=== PATIENT | male | born 1935 | race Caucasian/White ===

== ENCOUNTER → 2016-08-27 | Day surgery (SDC) | payer OTHER, BC ==
[~2016-08-27] VITALS: Ht 176.5 cm; Wt 83.5 kg
[~2016-08-27] MED LIST: ALL300 PO; ASPEC81 PO; ATROPINE SULFATE 0.1 MG/ML 5ML SYR IV PRN; BELLADONNA/OPIUM SUPP 60 MG SUPP PR ONE; BRIM0.2S OPL; CEFAZOLIN 2000 MG/60 ML D5W IV SCH; CEPH-570 PO; CHOL100010 PO; EpHEDrine SULFATE 50MG/5ML SYR ONE; EpHEDrine SULFATE INJ 50 MG/ML AMP IV PRN; FENTANYL CITRATE INJ 50 MCG/1 ML 2 ML VIAL IV PRN; FENTANYL CITRATE INJ 50 MCG/1 ML 2 ML VIAL ONE; FISHOIL PO; GABA1TAB PO; GLC500 PO; HYDROmorphone INJ 1 MG/ML SYR IV PRN; LABETALOL HCL IV 5 MG/ML 20ML IV ONE; LIDOCAINE HCL 2% 2 ML VIAL (20MG/ML) ONE; LOTE1GEL OPL; LPT10 PO; MIDAZOLAM HCL 1 MG/ML 2ML VIAL ONE; MULT-506 PO; ONDANSETRON INJ 2 MG/ML 2 ML VIAL IV PRN; PRED-301 PO; PROPOFOL IV EMULSION 10 MG/ML 20 ML VIAL IV ONE; ROCURONIUM BROMIDE 10 MG/ML 5 ML VIAL ONE; SENN1TAB77 PO; SUCCINYLCHOLINE CHLORIDE 20 MG/ML 10 ML VIAL IV ONE; VALA500T60 PO; VITA1TAB4 PO
[2016-08-27 15:10] VITALS: BP 155/77; PULSE 60; TEMP 36.9; O2SAT 98; Ht 176.5 cm; Wt 83.5 kg
--- NOTE | 2016-08-27 19:22 | [facility] Operative Report ---
Operative Report Operative Date Aug 27, 2016. Pre-Operative Diagnosis Left ureteral stone Post-Operative Diagnosis impacted left ureteral stone Procedure(s) Performed cysto left ureteroscopy laser lithotripsy basket stone extraction stent placement Surgeon Dr. Zuleta Customer Relationship Specialist Surgeon(s) none Estimated Blood Loss 2ml Findings large impacted left mid ureteral stone, densely radio-opaque Fluids 700mL Specimens A. Left ureteral stone For Culture: urine 1. Urine - Routine - Culture and Sensitivity Drains 6 fr 26 centimeter double j stent Anesthesia GET Complication(s) None Disposition Recovery Room / PACU Indications large obstructing left mid ureteral stone with renal insufficiency Description of Procedure Patient was given generl ET anesthesia and placed in lithotomy position. His genitals were prepped and draped in sterile fashion. Time out held with team. I placed a 21 fr rigid cystoscope to bladder. 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 Scope fits just a bit tight. The prostate is enlarged with a large middle lobe but short. The UOs are dependent due to middle lobe and slit shape. I placed a road wire up left ureter and met a lot of resistance at the radio-opaque mid ureteral stone. With much manipulation I got road runner wire passed the stone to kidney. Immediately there was brisk drainage of white colored urine consistent with long standing obstruction. I switched the wire via a 5 fr to a stiff wire. I used a dual lumen to calibrate the UO and place a second wire. I passed a flexible ureteroscope to the stone. i used a 200 micron holmium laser to fragment thee large dense black stone in the mid ureter. It was heavily impacted at the lateral margin. I broke the stones carmen dozens of pieces. I used a 2.4 fr zero tip basket to remove all the pieces and drop them in the bladder. I then placed a 26 centimeter 6 Fr double J stent easily. There is brisk efflux after placement. I rinsed the stone fragmetns out of the bladder with the cystoscope. I left bladder empty and concluded case. I placed a belladonna and opium suppository for post-op pain. He transferred to recovery under my escort, in stable condition. Plan: Home today Pyridium for dysuria x 3 days flomax daily oral pain meds as needed stent out in 2 weeks renal ultrasound in 6 weeks ASA 3 clean contaminated case 57 seconds fluoro ancef antibiotic confectionery cooker I attest to the content of the Intraoperative Record and any orders documented therein. Any exceptions are noted below.
--- NOTE | 2016-08-27 19:25 | Discharge Instructions ---
Discharge Instructions Date of Service Aug 27, 2016. Admission Reason for Admission: Kidney Stones Discharge Discharge Diagnosis / Problem: impacted large left mid ureteral stone Discharge Goals Goal(s): Decrease discomfort, Improve function, Improve disease control Activity Recommendations Activity Limitations: resume your previous activity Lifting Limitations: none Exercise/Sports Limitations: none May Resume Sexual Activity: when tolerated Shower/Bathe: no limitations Driving or Machine Use: resume 1 day after discharge . Instructions / Follow-Up Instructions / Follow-Up expect blood in urine we will remove the stent in 2 weeks in the office we will get a renal ultrasound in 6 weeks Discharge Diet Recommended Diet: Diabetes Type 2 Diet Fluid Restriction: None Procedures Procedures Performed: Cystoscopy, Left ureteroscopy, Laser Lithotripsy Holmium, Left ureteral basket stone extraction stent placement Pending Studies Studies pending at discharge: yes List of pending studies: stone analysis and urine culture Medical Emergencies . Who to Call and When: Medical Emergencies: If at any time you feel your situation is an emergency, please call 911 immediately. . Non-Emergent Contact Non-Emergency issues call your: Urologist ([phone]) Call Non-Emergent contact if: temperature is above 100.5, your pain is not controlled . . "Provider Documentation" section prepared by Mira Zuleta. VTE Core Measure Inpt VTE Proph given/why not?: SCD's [place] Drug Monitoring Program Search Results: patient reviewed within database, no issues identified
--- NOTE | 2016-08-27 19:40 | DIAGNOSTIC IMAGING REPORT ---
INTRAOPERATIVE SUPINE ABDOMEN 4 VIEWS CLINICAL HISTORY: Laser lithotripsy and stent placement COMPARISON STUDY: No previous studies for comparison. FINDINGS: 4 fluoroscopic spot images are provided for interpretation. 50 seconds seconds of fluoroscopic time was utilized. The left ureter was catheterized in a retrograde fashion. A left-sided nephroureteral stent was placed. The final image, the distal portion of the stent is visualized with a pigtail catheter bladder level. IMPRESSION: Intraoperative fluoroscopic spot films during laser lithotripsy and stent placement Electronically signed by: Tony Byrd M.D. 08/27/2016 7:38 PM Dictated Date/Time: 08/27/2016 7:37 PM
[2016-08-27 20:00] VITALS: BP 177/79; PULSE 51; TEMP 36; O2SAT 100
--- NOTE | 2016-08-27 20:00 | Anesthesiology Progress Note ---
Anesthesia Post Op Note Date & Time Aug 27, 2016 at 20:00 Vital Signs Pain Intensity: 0 Vital Signs Past 12 Hours Date Time Temp Pulse Resp B/P Pulse Ox O2 Delivery O2 Flow Rate FiO2 08/27/16 19:55 36.4 60 16 178/75 99 Room Air 08/27/16 19:45 58 16 173/85 99 Room Air 08/27/16 19:35 64 16 168/89 99 Room Air 08/27/16 19:25 68 16 169/89 99 Room Air 08/27/16 19:17 36.5 67 16 178/96 100 Mask 10 08/27/16 15:10 36.9 60 18 155/77 98 Room Air Notes Mental Status: alert / awake / arousable, participated in evaluation Pt Amnestic to Procedure: Yes Nausea / Vomiting: adequately controlled Pain: adequately controlled Airway Patency, RR, SpO2: stable & adequate BP & HR: stable & adequate Hydration State: stable & adequate Anesthetic Complications: no major complications apparent
[2016-08-27 20:30] VITALS: BP 166/86; PULSE 67; TEMP 36; O2SAT 95
== END | disposition home or self-care (01) ==
LOC: C.ACU 14:33
PROVIDERS: ATTEND Urology
DX: N20.1 Calculus of ureter (principal); E11.9 Type 2 diabetes mellitus without complications

== ENCOUNTER → 2017-01-10 | Outpatient (CLI) | payer OTHER, BC ==
[~2017-01-10] MED LIST changes: -ATROPINE SULFATE 0.1 MG/ML 5ML SYR IV PRN; -BELLADONNA/OPIUM SUPP 60 MG SUPP PR ONE; -CEFAZOLIN 2000 MG/60 ML D5W IV SCH; -EpHEDrine SULFATE 50MG/5ML SYR ONE; -EpHEDrine SULFATE INJ 50 MG/ML AMP IV PRN; -FENTANYL CITRATE INJ 50 MCG/1 ML 2 ML VIAL IV PRN; -FENTANYL CITRATE INJ 50 MCG/1 ML 2 ML VIAL ONE; -GLC500 PO; -HYDROmorphone INJ 1 MG/ML SYR IV PRN; -LABETALOL HCL IV 5 MG/ML 20ML IV ONE; -LIDOCAINE HCL 2% 2 ML VIAL (20MG/ML) ONE; -LOTE1GEL OPL; -MIDAZOLAM HCL 1 MG/ML 2ML VIAL ONE; -ONDANSETRON INJ 2 MG/ML 2 ML VIAL IV PRN; -PRED-301 PO; -PROPOFOL IV EMULSION 10 MG/ML 20 ML VIAL IV ONE; -ROCURONIUM BROMIDE 10 MG/ML 5 ML VIAL ONE; -SUCCINYLCHOLINE CHLORIDE 20 MG/ML 10 ML VIAL IV ONE
--- NOTE | 2017-01-10 12:36 | DIAGNOSTIC IMAGING REPORT ---
(CHEST) THORAX WITHOUT CLINICAL HISTORY: 81 years-old Male presenting with LUNG NODULES. TECHNIQUE: Multidetector CT imaging of the chest was performed without the use of intravenous contrast. IV contrast: None. A dose lowering technique was used consistent with the principles of ALARA (as low as reasonably achievable). COMPARISON: 12/08/2015. CT DOSE (mGy.cm): The estimated cumulative dose is 561.73 mGy.cm. FINDINGS: Inside Steward/Stewardess topogram: Unremarkable. On soft tissue windows, similar appearance of the 1.3 cm hypodense nodule in the left lobe of the thyroid. Bilateral enlarged axillary lymph nodes are similar in appearance to prior exam. The largest lymph node on the right measures 7 mm in short axis and on the left measures 11 mm. This is not significantly changed from prior. Evaluation for hilar lymphadenopathy is limited without intravenous contrast. Minimal atherosclerosis of the aortic arch. Normal heart size. No pericardial or pleural effusion. Multiple well-defined hypodensities noted in the liver unchanged from prior, indeterminate but likely hepatic cysts or hamartomas. Gallstones noted. Spleen top normal in size. Nonobstructing 4 mm calculus in the left kidney. Additional nonobstructing calculi in the right kidney. Multiple hypodensities in the kidneys bilaterally, indeterminate but likely cysts. On lung windows, Mosaic attenuation in the lungs may indicate small airways disease. Minimal dependent changes likely atelectasis. Linear opacity at the right apex likely scarring. Calcified granuloma noted in the right middle lobe. Few tiny punctate nodules bilaterally of doubtful clinical significance. No enlarging pulmonary nodule. Airways patent. On bone windows, degenerative changes of the thoracic spine. IMPRESSION: 1. Prominent bilateral axillary lymph nodes stable from prior exam. 2. No suspicious pulmonary nodule. Few tiny punctate nodules are of doubtful clinical significance. 3. Bilateral nonobstructing nephrolithiasis. 4. Spleen top normal in size. Electronically signed by: Carlo Slater M.D. 01/10/2017 12:34 PM Dictated Date/Time: 01/10/2017 12:24 PM
== END | disposition home or self-care (01) ==
LOC: C.CTS 11:11
PROVIDERS: ATTEND Internal Medicine
DX: R91.1 Solitary pulmonary nodule (principal)

== ENCOUNTER → 2017-08-17 | Day surgery (SDC) | payer OTHER, BC ==
[2017-08-12 12:13] VITALS: Ht 177.8 cm; Wt 83.2 kg
[~2017-08-17] VITALS: Ht 177.8 cm; Wt 83.2 kg
[~2017-08-17] MED LIST changes: -ALL300 PO; -ASPEC81 PO; +ASPI81TA28 PO; +ATROPINE SULFATE 0.1 MG/ML 5ML SYR IV PRN; -BRIM0.2S OPL; +BUPIVACAINE 0.5 % 5 MG/1 ML MPF 30ML VIAL ONE; +BUPIVACAINE/EPINEPHRINE 0.5% MPF 1:200,000 30 ML VIAL ONE; -CEPH-570 PO; -CHOL100010 PO; +CLINDAMYCIN PHOS 150 MG/ML 2 ML VIAL IV SCH; +EYE DROP OPL; +EpHEDrine SULFATE INJ 50 MG/ML AMP IV PRN; +FENTANYL CITRATE INJ 50 MCG/1 ML 2 ML VIAL IV PRN; +FENTANYL CITRATE INJ 50 MCG/1 ML 2 ML VIAL ONE; -FISHOIL PO; -GABA1TAB PO; +LACTATED RINGER'S 1000ML 1,000 ML IV SCH; +LIDOCAINE HCL 2% 2 ML VIAL (20MG/ML) ONE; +LIDOCAINE HCL 2% LOCAL 20 ML VIAL ONE; -LPT10 PO; +MIDAZOLAM HCL 1 MG/ML 2ML VIAL ONE; +NRN600 PO; +OMEG10007 PO; +ONDANSETRON INJ 2 MG/ML 2 ML VIAL IV PRN; +PROPOFOL IV EMULSION 10 MG/ML 20 ML VIAL IV ONE; -SENN1TAB77 PO; +SODIUM CHLORIDE 0.9% 1000ML 1,000 ML IV SCH; +SUPER BETA PROSTATE PO; +TRAM-453 PO; -VITA1TAB4 PO
--- NOTE | 2017-08-17 08:28 | History & Physical Bridge - SC ---
H&P Re-Evaluation Bridge Note: I have examined the patient, reviewed the History & Physical and in the interval since the performance of the History & Physical I have noted the following changes of clinical significance: No changes noted
--- NOTE | 2017-08-17 09:18 | [facility] Post Operative Brief Note ---
Immediate Operative Summary Operative Date Aug 17, 2017. Pre-Operative Diagnosis Right Carpal Tunnel Syndrome Post-Operative Diagnosis Same Procedure(s) Performed Right Carpal Tunnel Release Surgeon Dr. Santiago Conveyor Installer Surgeon(s) Maryellen Benito PA-C Estimated Blood Loss Minimal Findings Consistent with Post-Op Diagnosis Specimens None Drains None Anesthesia Type MAC Complication(s) none Disposition Accompanied Pt To Recovery: no Disposition: Recovery Room / PACU
--- NOTE | 2017-08-17 09:21 | Discharge Instructions-SurgCtr ---
Discharge Instructions Date of Service Aug 17, 2017. Visit Reason for Visit: Right Carpal Tunnel Syndrome Discharge Discharge Diagnosis / Problem: right carpal tunnel syndrome Discharge Goals Goal(s): Decrease discomfort, Therapeutic intervention Activity Recommendations Activity Limitations: per Instructions/Follow-up section Anesthesia . Post Anesthesia Instructions: If you have had General Anesthesia or IV Sedation: * Do not drive today. * Resume driving when surgeon permits. * Do not make important decisions or sign legal documents today. * Call surgeon for: 1. Temperature elevations greater than 101 degrees F. 2. Uncontrollable pain. 3. Excessive bleeding. 4. Persistent nausea and vomiting. 5. Medication intolerance (nausea, vomiting or rash). * For nausea and vomiting use only clear liquids such as: tea, soda, bouillon until nausea subsides, then gradually increase diet as tolerated. * If you have any concerns or questions, call your surgeon's office. If physician is unavailable and it is an emergency, call 911 or go to the nearest emergency room. . Instructions / Follow-Up Instructions / Follow-Up MEDICATIONS: * Resume previous medications unless instructed otherwise by your surgeon. * Always take pain medication on a full stomach or with food to avoid upset stomach. * Do not drink alcohol or drive while taking narcotics. * Ibuprofen or Tylenol may be taken if narcotic not needed. SPECIAL CARE INSTRUCTIONS: __ None __ Keep extremity elevated and iced x 48 hours; apply ice 20-30 minutes 8-10 times/day. May remove at night. __ Sling __24 hrs/day __ Remove at night __ Shoulder Immobilizer __ 24 hrs/day __ Remove at night _x_ Dressing _x_ Maintain until seen in office, may shower with plastic over site __ Remove dressings in 24-48 hours and then may shower __ Cover incisions with band-aids after showering __ Do not remove steri-strips Call physician if chills or temperature rises above 102 degrees or pain unrelieved by prescribed pain medications at . . Diet Recommendations Home Diet: resume previous diet Procedures Procedures Performed: Right Carpal Tunnel Release Pending Studies Studies pending at discharge: no Medical Emergencies . Who to Call and When: Medical Emergencies: If at any time you feel your situation is an emergency, please call 911 immediately. . Non-Emergent Contact Non-Emergency issues call your: Surgeon . . "Provider Documentation" section prepared by Sebastian Benito. .
[2017-08-17 09:26] VITALS: TEMP 37
--- NOTE | 2017-08-17 09:45 | OPERATIVE REPORT ---
DATE OF OPERATION: 08/17/2017 SURGEON: Hema Santiago MD. IS MANAGER: MICHAEL Macias. PREOPERATIVE DIAGNOSES: 1. Right severe carpal tunnel syndrome. 2. Right hand asymptomatic Dupuytren's contracture. POSTOPERATIVE DIAGNOSIS: Same. PROCEDURE PERFORMED: Right carpal tunnel release. COMPLICATIONS: None. ESTIMATED BLOOD LOSS: Minimal. TOURNIQUET TIME: 5 minutes at 250 mmHg. ANESTHESIA: Local with IV sedation. OPERATIVE INDICATIONS: An 81-year-old very active gentleman who has had a long history of bilateral hand pain, discomfort, right side worse than the left. He has been through extensive conservative treatment. Things continued to get worse and he has constant numbness in his hand. He had severe thenar atrophy as well. Symptoms are consistent with chronic severe carpal tunnel syndrome. He elected to proceed with carpal tunnel release. He does have asymptomatic Dupuytren's contracture as well. OPERATIVE PROCEDURE: The patient was taken to the operating room, identified and placed on the operating table in supine position. All contact areas were appropriately padded. IV antibiotics were provided by anesthesia team. A right forearm tourniquet was placed. Some IV sedation was provided. 8 mL of 50:50 combination of 0.5% Marcaine with epinephrine and 2% lidocaine were then injected in and around the proposed incision site. The right hand was then prepped and draped in usual sterile fashion. The right hand was elevated and exsanguinated with Esmarch and tourniquet placed at 250 mmHg. A 2.5-3 cm incision was made in the palm just ulnar to the palmaris longus tendon in blunt fashion. This was carried through the subcutaneous tissues down the level of the palmar fascia. The palmar fascia was incised longitudinally in line with skin incision. The underlying transverse carpal ligament was identified. It was transected. It was cleaned of all soft tissues. It was transected distally with use of a Warrick blade, knife and then bluntly spread. Attention was then drawn proximally. Blunt dissection carried out above and below the ligament proximally. The ligament transected from minimum distance of 3 cm proximal to the wrist flexion crease. The ligament was bluntly spread and found to be completely released. The wound was irrigated with copious amounts of normal saline. Tourniquet was then let down for a tourniquet time of 5 minutes. Hemostasis was assured with use of electrocautery. The skin was then closed with 5-0 nylon suture in a horizontal mattress fashion. The hand was then cleaned, dried and a sterile dressing of Xeroform, 4 x 4, sterile cast and Norbert bandage were applied. The patient then transferred to the recovery room in stable condition. The patient tolerated the procedure well with no complication. All needle and sponge counts were correct at the end of the operation. I attest to the content of the Intraoperative Record and any orders documented therein. Any exception s are noted below.
[2017-08-17 09:53] VITALS: BP 146/77; PULSE 64; O2SAT 97
--- NOTE | 2017-08-17 09:59 | Anesthesia Progress Nt - [facility] ---
Anesthesia Post Op Note Date & Time Aug 17, 2017 at 09:59 Vital Signs Pain Intensity: 0 Vital Signs Past 12 Hours Date Time Temp Pulse Resp B/P (MAP) Pulse Ox O2 Delivery O2 Flow Rate FiO2 08/17/17 09:53 64 146/77 (100) 97 Room Air 08/17/17 09:26 37.0 74 16 122/74 (90) 96 Room Air 08/17/17 08:17 37.0 69 16 138/78 (98) 97 Room Air Notes Mental Status: alert / awake / arousable, participated in evaluation Pt Amnestic to Procedure: Yes Nausea / Vomiting: adequately controlled Pain: adequately controlled Airway Patency, RR, SpO2: stable & adequate BP & HR: stable & adequate Hydration State: stable & adequate Anesthetic Complications: no major complications apparent
== END | disposition home or self-care (01) ==
LOC: X.SURG 07:56
PROVIDERS: ATTEND Orthopaedic Surgery Sports Medicine
DX: G56.01 Carpal tunnel syndrome, right upper limb (principal); M72.0 Palmar fascial fibromatosis [Dupuytren]; C91.10 Chronic lymphocytic leukemia of B-cell type not having achieved remission; E78.5 Hyperlipidemia, unspecified; D69.6 Thrombocytopenia, unspecified; E11.9 Type 2 diabetes mellitus without complications; Z87.442 Personal history of urinary calculi; Z79.82 Long term (current) use of aspirin; Z79.899 Other long term (current) drug therapy

== ENCOUNTER → 2017-09-07 | Day surgery (SDC) | payer OTHER, BC ==
[2017-09-05 07:45] VITALS: Ht 177.8 cm; Wt 83.2 kg
[~2017-09-07] VITALS: Ht 177.8 cm; Wt 83.2 kg
[~2017-09-07] MED LIST changes: -BUPIVACAINE 0.5 % 5 MG/1 ML MPF 30ML VIAL ONE; -TRAM-453 PO
--- NOTE | 2017-09-07 13:59 | Discharge Instructions-SurgCtr ---
Discharge Instructions Date of Service Sep 07, 2017. Visit Reason for Visit: Left Carpal Tunnel Syndrome Discharge Discharge Diagnosis / Problem: left carpal tunnel syndrome Discharge Goals Goal(s): Decrease discomfort, Improve function, Therapeutic intervention Activity Recommendations Activity Limitations: per Instructions/Follow-up section Anesthesia . Post Anesthesia Instructions: If you have had General Anesthesia or IV Sedation: * Do not drive today. * Resume driving when surgeon permits. * Do not make important decisions or sign legal documents today. * Call surgeon for: 1. Temperature elevations greater than 101 degrees F. 2. Uncontrollable pain. 3. Excessive bleeding. 4. Persistent nausea and vomiting. 5. Medication intolerance (nausea, vomiting or rash). * For nausea and vomiting use only clear liquids such as: tea, soda, bouillon until nausea subsides, then gradually increase diet as tolerated. * If you have any concerns or questions, call your surgeon's office. If physician is unavailable and it is an emergency, call 911 or go to the nearest emergency room. . Instructions / Follow-Up Instructions / Follow-Up MEDICATIONS: * Resume previous medications unless instructed otherwise by your surgeon. * Always take pain medication on a full stomach or with food to avoid upset stomach. * Do not drink alcohol or drive while taking narcotics. * Ibuprofen or Tylenol may be taken if narcotic not needed. SPECIAL CARE INSTRUCTIONS: __ None __ Keep extremity elevated and iced x 48 hours; apply ice 20-30 minutes 8-10 times/day. May remove at night. __ Sling __24 hrs/day __ Remove at night __ Shoulder Immobilizer __ 24 hrs/day __ Remove at night _x_ Dressing _x_ Maintain until seen in office, may shower with plastic over site __ Remove dressings in 24-48 hours and then may shower __ Cover incisions with band-aids after showering __ Do not remove steri-strips Call physician if chills or temperature rises above 102 degrees or pain unrelieved by prescribed pain medications at . . follow up in 2 weeks Diet Recommendations Home Diet: resume previous diet Procedures Procedures Performed: Left Carpal Tunnel Release Pending Studies Studies pending at discharge: no Medical Emergencies . Who to Call and When: Medical Emergencies: If at any time you feel your situation is an emergency, please call 911 immediately. . Non-Emergent Contact Non-Emergency issues call your: Surgeon . . "Provider Documentation" section prepared by Sebastian Benito. .
--- NOTE | 2017-09-07 14:01 | [facility] Post Operative Brief Note ---
Immediate Operative Summary Operative Date Sep 07, 2017. Pre-Operative Diagnosis Left Carpal Tunnel Syndrome Post-Operative Diagnosis Same Procedure(s) Performed Left Carpal Tunnel Release Surgeon Dr. Santiago Community Specialist Surgeon(s) Maryellen Benito PA-C Estimated Blood Loss Minimal Findings Consistent with Post-Op Diagnosis Specimens None Drains None Anesthesia Type MAC Complication(s) none Disposition Accompanied Pt To Recovery: no Disposition: Recovery Room / PACU
[2017-09-07 14:05] VITALS: BP 131/71; PULSE 56; TEMP 36.4; O2SAT 99
--- NOTE | 2017-09-07 14:15 | Anesthesia Progress Nt - [facility] ---
Anesthesia Post Op Note Date & Time Sep 07, 2017 at 14:15 Vital Signs Pain Intensity: 0 Vital Signs Past 12 Hours Date Time Temp Pulse Resp B/P (MAP) Pulse Ox O2 Delivery O2 Flow Rate FiO2 09/07/17 14:05 36.4 56 12 131/71 (91) 99 Room Air 09/07/17 12:06 36.6 60 16 135/77 (96) 98 Room Air Notes Mental Status: alert / awake / arousable, participated in evaluation Pt Amnestic to Procedure: Yes Nausea / Vomiting: adequately controlled Pain: adequately controlled Airway Patency, RR, SpO2: stable & adequate BP & HR: stable & adequate Hydration State: stable & adequate Anesthetic Complications: no major complications apparent
--- NOTE | 2017-09-07 15:27 | OPERATIVE REPORT ---
DATE OF OPERATION: 09/07/2017 SURGEON: Hema Santiago MD CUSTOMER DEVELOPMENT REPRESENTATIVE: MICHAEL Macias PREOPERATIVE DIAGNOSIS: Left carpal tunnel syndrome. POSTOPERATIVE DIAGNOSIS: Same. PROCEDURE PERFORMED: Left carpal tunnel release. COMPLICATIONS: None. ESTIMATED BLOOD LOSS: Minimal. TOURNIQUET TIME: 5 minutes at 250 mmHg. ANESTHESIA: Local with IV sedation. OPERATIVE INDICATIONS: Patient is an 81-year-old very active gentleman who has had a fairly long history of bilateral hand pain, discomfort, and numbness with classic carpal tunnel symptoms. He has gotten to the point where he has gotten thenar atrophy on both sides. He underwent a right carpal tunnel release 3 weeks ago and has made a gradual progressive recovery but slow. He has elected to proceed with left carpal tunnel release. OPERATIVE PROCEDURE: The patient taken to the operating room, identified, and placed on the operating table in supine position. All contact areas were appropriately padded. IV antibiotics provided by anesthesia team. A left forearm tourniquet was placed. Some IV sedation was provided. Eight mL of a 50:50 combination of 0.5% Marcaine with epinephrine and 2% lidocaine were then injected in and around the proposed incision site. The left hand was then prepped and draped in usual sterile fashion. Left arm was elevated and exsanguinated with Esmarch and tourniquet was placed at 250 mmHg. A 2.5-3 cm incision was made in the palm just ulnar to the palmaris longus tendon. Blunt dissection was carried through subcutaneous tissue down below the palmar fascia. The palmar fascia was incised longitudinally in line with skin incision. The underlying transverse carpal ligament was identified. It was transected distally with use of a Waldo blade knife and then bluntly spread. Attention was then drawn proximally. Blunt dissection was carried out above and below the ligament proximally. The ligament was then transected from minimum distance of 3 cm proximal to the wrist flexion crease. The ligament was bluntly spread and found to be completely released. The wound was irrigated with copious amounts of normal saline. The tourniquet was then let down for final tourniquet time of 5 minutes. Hemostasis was assured with use of electrocautery. The skin was then closed with 5-0 nylon suture in a horizontal mattress fashion. The hand was then cleaned, dried and a sterile dressing with Xeroform, 4 x 4, sterile cast padding and Norbert bandage were applied. The patient was then transferred to the recovery room in stable condition. The patient tolerated the procedure with no complication. All needle and sponge counts were correct at the end of the operation. I attest to the content of the Intraoperative Record and any orders documented therein. Any exception s are noted below.
== END | disposition home or self-care (01) ==
LOC: X.SURG 11:39
PROVIDERS: ATTEND Orthopaedic Surgery Sports Medicine
DX: G56.02 Carpal tunnel syndrome, left upper limb (principal); E78.5 Hyperlipidemia, unspecified; E11.43 Type 2 diabetes mellitus with diabetic autonomic (poly)neuropathy; D69.6 Thrombocytopenia, unspecified; C91.10 Chronic lymphocytic leukemia of B-cell type not having achieved remission; F17.290 Nicotine dependence, other tobacco product, uncomplicated; Z88.1 Allergy status to other antibiotic agents; Z96.659 Presence of unspecified artificial knee joint; Z94.7 Corneal transplant status; Z79.82 Long term (current) use of aspirin

== ENCOUNTER 2018-01-02 08:36 | Emergency (ER) | payer OTHER, BC ==
[~2018-01-02 08:36] MED LIST changes: -ATROPINE SULFATE 0.1 MG/ML 5ML SYR IV PRN; -BUPIVACAINE/EPINEPHRINE 0.5% MPF 1:200,000 30 ML VIAL ONE; -CLINDAMYCIN PHOS 150 MG/ML 2 ML VIAL IV SCH; -EpHEDrine SULFATE INJ 50 MG/ML AMP IV PRN; -FENTANYL CITRATE INJ 50 MCG/1 ML 2 ML VIAL IV PRN; -FENTANYL CITRATE INJ 50 MCG/1 ML 2 ML VIAL ONE; -LACTATED RINGER'S 1000ML 1,000 ML IV SCH; -LIDOCAINE HCL 2% 2 ML VIAL (20MG/ML) ONE; -LIDOCAINE HCL 2% LOCAL 20 ML VIAL ONE; -MIDAZOLAM HCL 1 MG/ML 2ML VIAL ONE; -ONDANSETRON INJ 2 MG/ML 2 ML VIAL IV PRN; -PROPOFOL IV EMULSION 10 MG/ML 20 ML VIAL IV ONE; -SODIUM CHLORIDE 0.9% 1000ML 1,000 ML IV SCH
[2018-01-02 08:43] VITALS: TEMP 36.6; Ht 175.3 cm
--- NOTE | 2018-01-02 08:56 | EMERGENCY ROOM VISIT NOTE ---
History Report prepared by Thiago: Robin Boo Under the Supervision of: Dr. Deny Bateman M.D. First contact with patient: 08:45 Chief Complaint: KIDNEY STONE Stated Complaint: KIDNEY STONES History of Present Illness The patient is an 82 year old male who presents to the Emergency Room with complaints of severe and worsening right flank that began a week ago. The patient notes that the pain has been intermittent over the past week, but worsened significantly last night. The at bedside notes that he has had many kidney stones in the past and has required lithotripsy. His pain is worsened by bending over and changes in position. The patient denies any increased urinary frequency or burning. He does have an appointment with Dr. Pretty in a couple of weeks. Source of History: patient Onset: One week ago Position: back (right flank) Symptom Intensity: severe Timing: intermittent, worsening Modifying Factors (Worsening): other (bending over and changes in position) Associated Symptoms: No urinary symptoms Review of Systems See HPI for pertinent positives & negatives. A total of 10 systems reviewed and were otherwise negative. Past Medical & Surgical Medical Problems: (1) CLL (chronic lymphocytic leukemia) (2) Diab Denisha Wo Compl, Type Ii Or Unspec Type, Not Uncntrld (3) Hx Of Leukemia Nos (4) Personal History Of Urinary Calculi Family History Diabetes mellitus Social History Smoking Status: Current Every Day Smoker Marital Status: Housing Status: lives with significant other Occupation Status: retired Current/Historical Medications Scheduled Aspirin (Aspirin Ec), 81 MG PO QAM Fish Oil (Trail-3), 1 CAP PO DAILY Gabapentin (Gabapentin), 600 MG PO DAILY Multivitamin (Multivitamin), 1 TAB PO DAILY Ofloxacin (Oph) (Ocuflox Oph Soln), 1 DROPS OPL QID Valacyclovir (Valtrex), 500 MG PO BID Allergies Coded Allergies: Cephalexin (Verified Allergy, Severe, Rash, 01/02/18) Physical Exam Vital Signs Date Time Temp Pulse Resp B/P (MAP) Pulse Ox O2 Delivery O2 Flow Rate FiO2 01/02/18 10:49 54 17 174/89 100 01/02/18 09:44 59 18 142/76 96 Room Air 01/02/18 08:43 36.6 76 18 130/75 98 Room Air Physical Exam GENERAL: Awake, alert, well-appearing, in no acute distress HENT: Normocephalic, atraumatic. Oropharynx unremarkable. EYES: Normal conjunctiva. Sclera non-icteric. NECK: Supple. No nuchal rigidity. FROM. No JVD. RESPIRATORY: Clear to auscultation. CARDIAC: Regular rate, normal rhythm. Extremities warm and well perfused. Pulses equal. ABDOMEN: Soft, non-distended. No tenderness to palpation. No rebound or guarding. No masses. RECTAL: Deferred. MUSCULOSKELETAL: Chest examination reveals no tenderness. The back is symmetrical on inspection without obvious abnormality. There is no CVA tenderness to palpation. No joint edema. LOWER EXTREMITIES: Calves are equal size bilaterally and non-tender. No edema. No discoloration. NEURO: Normal sensorium. No sensory or motor deficits noted. SKIN: No rash or jaundice noted. Medical Decision & Procedures ER Provider Diagnostic Interpretation: Radiology results as stated below per my review and radiologist interpretation: CT SCAN OF THE ABDOMEN AND PELVIS WITHOUT IV CONTRAST CLINICAL HISTORY: Right flank pain. COMPARISON STUDY: Abdominal CT dated 09/13/2009. TECHNIQUE: CT scan of the abdomen and pelvis is performed from the lung bases to the proximal femora. Images are reviewed in the axial, sagittal, and coronal planes. IV contrast was not administered for this examination as per the referring clinician. A dose lowering technique was utilized adhering to the principles of ALARA. CT DOSE: 1375.76 mGy.cm FINDINGS: Lung bases: The heart is normal in size and without pericardial effusion. A fat-containing Bochdalek hernia is noted at the right lung base. The lung bases are otherwise clear. Liver: The unenhanced liver is normal in size, contour, and attenuation. There is no intrahepatic biliary ductal dilatation. Scattered hepatic cysts measure up to 1.4 cm. A calcified granuloma is seen in the inferior right lobe. Gallbladder: There are numerous small calcified gallstones. There is no CT evidence of acute cholecystitis. Spleen: Normal in size and attenuation. Pancreas: Unremarkable. Adrenal glands: Unremarkable. Kidneys: The unenhanced kidneys are atrophic, left greater than right. No hydronephrosis is seen. There are at least 3 left renal cysts which measure up to 8 mm. There are 2 nonobstructing calculi in the upper pole of the right kidney measuring up to 4 mm. A 3.9 cm exophytic cyst arises from the left upper pole. Additional smaller renal cysts are noted bilaterally. Subcentimeter cortical hypodensities also likely represent cysts but are too small for definitive characterization. A 9 mm exophytic lesion arising from the lower pole of the right kidney is seen on image #195. This does not meet CT criteria for a simple cyst. Abdominal vasculature: The abdominal aorta is normal in course and caliber noting mild to moderate atherosclerotic calcification. Bowel: There is mild to moderate colonic diverticulosis without CT evidence of acute diverticulitis. Fecal retention is observed. No bowel obstruction is seen. The appendix is well-visualized and normal. Peritoneum: There is no intraperitoneal free air or abdominal ascites. There is a fat-containing umbilical hernia. Lymphadenopathy: There are mildly enlarged retroperitoneal and iliac chain lymph nodes. A right external iliac chain node on image #334 measures 2.0 x 1.5 cm. A left external iliac chain node on image #323 measures 2.0 x 1.1 cm. These are similar to the 2010 examination. No upper abdominal or mesenteric adenopathy is seen. There is no inguinal lymphadenopathy. Pelvic viscera: The prostate gland is enlarged and heterogeneous, measuring 5.4 cm in transverse diameter. The bladder is decompressed and grossly unremarkable. Skeletal structures: The skeletal structures are osteopenic. There is moderate lumbosacral spondylosis. There are bilateral pars defects at L5 with 8 mm anterolisthesis at L5-S1. A 10 mm sclerotic lesion in the medial left ilium seen on image #231 is new from 2010. No additional sclerotic foci are identified. IMPRESSION: 1. There are no acute infectious or inflammatory findings in the abdomen or pelvis. 2. Bilateral nephrolithiasis. 3. Cholelithiasis without CT evidence of acute cholecystitis. 4. Mild to moderate colonic diverticulosis without CT evidence of acute diverticulitis. 5. Prostatomegaly. 6. There are mildly enlarged retroperitoneal and iliac chain lymph nodes. These have not significantly changed from the 2010 examination and are of indeterminant significance. Clinical correlation will be required. 7. There is a 10 mm sclerotic lesion in the medial left ilium. This is indeterminant, and although this may simply represent a bone island island this is new from 2010. Correlation was serum PSA levels is recommended. A solitary metastasis is considered less likely but could appear similar. 8. Bilateral renal cysts are noted. There is an indeterminant 9 mm exophytic lesion arising from the lower pole of the right kidney which does not meet criteria for simple cyst. This likely represents a complex/hemorrhagic cyst but cannot definitively characterized. 9. Additional findings as above. Electronically signed by: Eric Jordan M.D. 01/02/2018 9:44 AM Dictated Date/Time: 01/02/2018 9:[address] DOSE: HISTORY: Pt c/o low back pain TECHNIQUE: Multiaxial CT images of the lumbar spine were performed and reformatted in the sagittal and coronal plane without the use of contrast. A dose lowering technique was utilized adhering to the principles of ALARA. COMPARISON: None. FINDINGS: No fractures within the lumbar spine. 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 Severe disc space narrowing at L5-S1. Mild disc space narrowing at L3-L4 and L4-L5 with endplate osteophytes. Severe facet degenerative changes within the lower lumbar spine. Moderate left-sided neural foraminal narrowing at L4-L5. Severe bilateral neural foraminal narrowing L5-S1. Mild bilateral neural foraminal narrowing at L3-L4 and within the right L4-L5 neural foramen. Mild to moderate central canal narrowing at L3-L4 and moderate central canal narrowing at L4-L5. Left-sided nephrolithiasis. Paraspinal soft tissues are unremarkable. The sacrum is intact. The 1 cm round sclerotic focus within the left posterior iliac bone. This is new from September 2009 CT examination. IMPRESSION: 1. No fractures within the lumbar spine. 2. 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 3. Degenerative changes as described above. 4. A new indeterminate 1 cm round sclerotic focus within the left posterior iliac bone. Electronically signed by: Sloan Rothman M.D. 01/02/2018 9:45 AM Dictated Date/Time: 01/02/2018 9:37 AM Laboratory Results 01/02/18 08:55 Red Blood Count 4.50, Mean Corpuscular Volume 94.9, Mean Corpuscular Hemoglobin 32.2, Mean Corpuscular Hemoglobin Concent 34.0, Mean Platelet Volume 9.8, Neutrophils (%) (Auto) 25.9, Lymphocytes (%) (Auto) 68.7, Monocytes (%) (Auto) 4.0, Eosinophils (%) (Auto) 1.0, Basophils (%) (Auto) 0.2, Neutrophils # (Auto) 3.83, Lymphocytes # (Auto) 10.14, Monocytes # (Auto) 0.59, Eosinophils # (Auto) 0.15, Basophils # (Auto) 0.03 01/02/18 08:55 Test 01/02/18 08:48 01/02/18 08:55 Urine Color YELLOW Urine Appearance CLEAR (CLEAR) Urine pH 5.0 (4.5-7.5) Urine Specific [place] 1.021 (1.000-1.030) Urine Protein TRACE (NEG) Urine Glucose (UA) NEG (NEG) Urine Ketones NEG (NEG) Urine Occult Blood NEG (NEG) Urine Nitrite NEG (NEG) Urine Bilirubin NEG (NEG) Urine Urobilinogen NEG (NEG) Urine Leukocyte Esterase NEG (NEG) Urine WBC (Auto) 0 /hpf (0-5) Urine RBC (Auto) 0-4 /hpf (0-4) Urine Hyaline Casts (Auto) 0 /lpf (0-5) Urine Epithelial Cells (Auto) 0-5 /lpf (0-5) Urine Bacteria (Auto) NEG (NEG) White Blood Count 14.77 K/uL (4.8-10.8) Red Blood Count 4.50 M/uL (4.7-6.1) Hemoglobin 14.5 g/dL (14.0-18.0) Hematocrit 42.7 % (42-52) Mean Corpuscular Volume 94.9 fL (80-100) Mean Corpuscular Hemoglobin 32.2 pg (25-34) Mean Corpuscular Hemoglobin Concent 34.0 g/dl (32-36) Platelet Count 116 K/uL (130-400) Mean Platelet Volume 9.8 fL (7.4-10.4) Neutrophils (%) (Auto) 25.9 % Lymphocytes (%) (Auto) 68.7 % Monocytes (%) (Auto) 4.0 % Eosinophils (%) (Auto) 1.0 % Basophils (%) (Auto) 0.2 % Neutrophils # (Auto) 3.83 K/uL (1.4-6.5) Lymphocytes # (Auto) 10.14 K/uL (1.2-3.4) Monocytes # (Auto) 0.59 K/uL (0.11-0.59) Eosinophils # (Auto) 0.15 K/uL (0-0.5) Basophils # (Auto) 0.03 K/uL (0-0.2) RDW Standard Deviation 45.5 fL (36.4-46.3) RDW Coefficient of Variation 13.2 % (11.5-14.5) Immature Granulocyte % (Auto) 0.2 % Immature Granulocyte # (Auto) 0.03 K/uL (0.00-0.02) Smudge Cells PRESENT Anion Gap 6.0 mmol/L (3-11) Estimated GFR () 33.4 Estimated GFR (Non- 28.8 BUN/Creatinine Ratio 18.3 (10-20) Calcium Level 8.6 mg/dl (8.5-10.1) Total Bilirubin 0.7 mg/dl (0.2-1) Direct Bilirubin 0.2 mg/dl (0-0.2) Aspartate Amino Transf (AST/SGOT) 13 U/L (15-37) Alanine Aminotransferase (ALT/SGPT) 18 U/L (12-78) Alkaline Phosphatase 109 U/L (45-117) Total Protein 6.7 gm/dl (6.4-8.2) Albumin 4.0 gm/dl (3.4-5.0) Lipase 278 U/L (73-393) Labs reviewed by ED physician. ED Course 0847: Past medical records reviewed. The patient was evaluated in room B3B. A complete history and physical examination was performed. 0919: I checked on the patient, he is doing well. 1041: I spent a long time at bedside with the patient discussing results. I reexamined the patient and offered pain medication. 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 He did back into a tree recently and trae his neck and back. The patient will be discharged home and will follow up with Dr. Lance's office for CT findings. Medical Decision Differential diagnosis: Etiologies such as renal colic, appendicitis, diverticulitis, mesenteric ischemia, aortic pathology, infections, inflammatory bowel disease, PUD, biliary pathology, UTI, as well as others were entertained. This is an 82-year-old male who presents emergency department complaining of back pain. On physical examination the pain appears to be muscle skeletal related as the patient reports pain anytime he twists and turns or bends over. He is concerned it is a kidney stone so he was sent for CAT scan of the abdomen or pelvis however this does not show any evidence of stone passage. He does have several other chronic findings on his CAT scan and I reviewed all the findings with both the patient and his . I strongly suspect again this is muscle skeletal related pain and recommended conservative treatment with pain medication however the patient is refusing any pain medication. I stressed the need for follow-up with both the patient's primary care physician as well as orthopedic surgery. Patient was in agreement with the treatment plan. Medication Reconcilliation Current Medication List: was personally reviewed by me Blood Pressure Screening Patient's blood pressure: Elevated blood pressure Blood pressure disposition: Elevated BP felt to be situational Impression Primary Impression: Back pain Scribe Attestation The scribe's documentation has been prepared under my direction and personally reviewed by me in its entirety. I confirm that the note above accurately reflects all work, treatment, procedures, and medical decision making performed by me. Departure Information Dispostion Home / Self-Care Referrals Gabino Lynch MD (PCP) Forms HOME CARE DOCUMENTATION FORM, IMPORTANT VISIT INFORMATION Patient Instructions My [facility] Additional Instructions Follow up with DR Lance's office for continued back pain Follow up with Dr Pretty's office for prostate issues You have been examined and treated today on an emergency basis only. This is not a substitute for, or an effort to provide, complete comprehensive medical care. It is impossible to recognize and treat all injuries or illnesses in a single emergency department visit. It is therefore important that you follow up closely with Dr Lynch. Call as soon as possible for an appointment. Thank you for your time and consideration. I look forward to speaking with you again soon. Please don't hesitate to call us if you have any questions. Problem Qualifiers Primary Impression: Back pain Back pain location: low back pain Chronicity: acute Back pain laterality: right Sciatica presence: without sciatica Qualified Codes: M54.5 - Low back pain
[2018-01-02 09:12] LABS: HEMATOCRIT 42.7 % (42-52); HEMOGLOBIN 14.5 g/dL (14.0-18.0); MEAN CELL VOLUME 94.9 fL (80-100); MEAN CORPUSCULAR HEMOGLOBIN 32.2 pg (25-34); MEAN PLATELET VOLUME 9.8 fL (7.4-10.4); PLATELET COUNT 116 K/uL (130-400); RED CELL DISTRIBUTION WIDTH CV 13.2 % (11.5-14.5); RED CELL DISTRIBUTION WIDTH SD 45.5 fL (36.4-46.3); WHITE BLOOD COUNT 14.77 K/uL (4.8-10.8)
[2018-01-02] MEDS ORDERED: OFLO0.3S OPL (09:30)
--- NOTE | 2018-01-02 09:45 | DIAGNOSTIC IMAGING REPORT ---
CT SCAN OF THE ABDOMEN AND PELVIS WITHOUT IV CONTRAST CLINICAL HISTORY: Right flank pain. COMPARISON STUDY: Abdominal CT dated 09/13/2009. TECHNIQUE: CT scan of the abdomen and pelvis is performed from the lung bases to the proximal femora. Images are reviewed in the axial, sagittal, and coronal planes. IV contrast was not administered for this examination as per the referring clinician. A dose lowering technique was utilized adhering to the principles of ALARA. CT DOSE: 1375.76 mGy.cm FINDINGS: Lung bases: The heart is normal in size and without pericardial effusion. A fat-containing Bochdalek hernia is noted at the right lung base. The lung bases are otherwise clear. Liver: The unenhanced liver is normal in size, contour, and attenuation. There is no intrahepatic biliary ductal dilatation. Scattered hepatic cysts measure up to 1.4 cm. A calcified granuloma is seen in the inferior right lobe. Gallbladder: There are numerous small calcified gallstones. There is no CT evidence of acute cholecystitis. Spleen: Normal in size and attenuation. Pancreas: Unremarkable. Adrenal glands: Unremarkable. Kidneys: The unenhanced kidneys are atrophic, left greater than right. No hydronephrosis is seen. There are at least 3 left renal cysts which measure up to 8 mm. There are 2 nonobstructing calculi in the upper pole of the right kidney measuring up to 4 mm. A 3.9 cm exophytic cyst arises from the left upper pole. Additional smaller renal cysts are noted bilaterally. Subcentimeter cortical hypodensities also likely represent cysts but are too small for definitive characterization. A 9 mm exophytic lesion arising from the lower pole of the right kidney is seen on image #195. This does not meet CT criteria for a simple cyst. Abdominal vasculature: The abdominal aorta is normal in course and caliber noting mild to moderate atherosclerotic calcification. Bowel: There is mild to moderate colonic diverticulosis without CT evidence of acute diverticulitis. Fecal retention is observed. No bowel obstruction is seen. The appendix is well-visualized and normal. Peritoneum: There is no intraperitoneal free air or abdominal ascites. There is a fat-containing umbilical hernia. Lymphadenopathy: There are mildly enlarged retroperitoneal and iliac chain lymph nodes. A right external iliac chain node on image #334 measures 2.0 x 1.5 cm. A left external iliac chain node on image #323 measures 2.0 x 1.1 cm. These are similar to the 2010 examination. No upper abdominal or mesenteric adenopathy is seen. There is no inguinal lymphadenopathy. Pelvic viscera: The prostate gland is enlarged and heterogeneous, measuring 5.4 cm in transverse diameter. The bladder is decompressed and grossly unremarkable. Skeletal structures: The skeletal structures are osteopenic. There is moderate lumbosacral spondylosis. There are bilateral pars defects at L5 with 8 mm anterolisthesis at L5-S1. A 10 mm sclerotic lesion in the medial left ilium seen on image #231 is new from 2010. No additional sclerotic foci are identified. IMPRESSION: 1. There are no acute infectious or inflammatory findings in the abdomen or pelvis. 2. Bilateral nephrolithiasis. 3. Cholelithiasis without CT evidence of acute cholecystitis. 4. Mild to moderate colonic diverticulosis without CT evidence of acute diverticulitis. 5. Prostatomegaly. 6. There are mildly enlarged retroperitoneal and iliac chain lymph nodes. These have not significantly changed from the 2010 examination and are of indeterminant significance. Clinical correlation will be required. 7. There is a 10 mm sclerotic lesion in the medial left ilium. This is indeterminant, and although this may simply represent a bone island island this is new from 2010. Correlation was serum PSA levels is recommended. A solitary metastasis is considered less likely but could appear similar. 8. Bilateral renal cysts are noted. There is an indeterminant 9 mm exophytic lesion arising from the lower pole of the right kidney which does not meet criteria for simple cyst. This likely represents a complex/hemorrhagic cyst but cannot definitively characterized. 9. Additional findings as above. Electronically signed by: Eric Jordan M.D. 01/02/2018 9:44 AM Dictated Date/Time: 01/02/2018 9:28 AM
[2018-01-02 09:46] LABS: ALKALINE PHOSPHATASE 109 U/L (45-117); ALT/SGPT 18 U/L (12-78); AST/SGOT 13 U/L (15-37); BLOOD UREA NITROGEN 38 mg/dl (7-18); CALCIUM 8.6 mg/dl (8.5-10.1); CARBON DIOXIDE 26 mmol/L (21-32); CREATININE 2.09 mg/dl (0.60-1.40); GLUCOSE 146 mg/dl (70-99); LIPASE 278 U/L (73-393); POTASSIUM 4.3 mmol/L (3.5-5.1); SODIUM 138 mmol/L (136-145); TOTAL PROTEIN 6.7 gm/dl (6.4-8.2)
--- NOTE | 2018-01-02 09:47 | DIAGNOSTIC IMAGING REPORT ---
LUMBAR SPINE CT CT DOSE: HISTORY: Pt c/o low back pain TECHNIQUE: Multiaxial CT images of the lumbar spine were performed and reformatted in the sagittal and coronal plane without the use of contrast. A dose lowering technique was utilized adhering to the principles of ALARA. COMPARISON: None. FINDINGS: No fractures within the lumbar spine. 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 Severe disc space narrowing at L5-S1. Mild disc space narrowing at L3-L4 and L4-L5 with endplate osteophytes. Severe facet degenerative changes within the lower lumbar spine. Moderate left-sided neural foraminal narrowing at L4-L5. Severe bilateral neural foraminal narrowing L5-S1. Mild bilateral neural foraminal narrowing at L3-L4 and within the right L4-L5 neural foramen. Mild to moderate central canal narrowing at L3-L4 and moderate central canal narrowing at L4-L5. Left-sided nephrolithiasis. Paraspinal soft tissues are unremarkable. The sacrum is intact. The 1 cm round sclerotic focus within the left posterior iliac bone. This is new from September 2009 CT examination. IMPRESSION: 1. No fractures within the lumbar spine. 2. 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 3. Degenerative changes as described above. 4. A new indeterminate 1 cm round sclerotic focus within the left posterior iliac bone. Electronically signed by: Sloan Rothman M.D. 01/02/2018 9:45 AM Dictated Date/Time: 01/02/2018 9:37 AM
[2018-01-02 09:54] LABS: BASO % 0.2 %; BASO ABS # 0.03 K/uL (0-0.2); EOS ABS # 0.15 K/uL (0-0.5); IG# 0.03 K/uL (0.00-0.02); LYMPH % 68.7 %; LYMPH ABS # 10.14 K/uL (1.2-3.4); MONO ABS # 0.59 K/uL (0.11-0.59); NEUT % 25.9 %; NEUT ABS # 3.83 K/uL (1.4-6.5)
[2018-01-02 10:49] VITALS: BP 174/89; PULSE 54; O2SAT 100
== END 2018-01-02 10:50 | disposition home or self-care (01) ==
LOC: C.EDB 08:37
DX: M54.5 Low back pain (principal); Z79.82 Long term (current) use of aspirin; F17.200 Nicotine dependence, unspecified, uncomplicated; Z87.442 Personal history of urinary calculi; Z88.1 Allergy status to other antibiotic agents

== ENCOUNTER → 2018-01-16 | Outpatient (CLI) | payer OTHER, BC ==
[~2018-01-16] MED LIST changes: -EYE DROP OPL; +OFLO0.3S OPL; -SUPER BETA PROSTATE PO
--- NOTE | 2018-01-16 10:11 | DIAGNOSTIC IMAGING REPORT ---
KUB HISTORY: N40.1 Benign localized hyperplasia of prostate with urinary obst COMPARISON: CT abdomen and pelvis 01/02/2018 FINDINGS: The bowel gas pattern is non-obstructive. Mild to moderate colonic stool volume. There is no organomegaly. There are proximally 4 calculi about the left kidney redemonstrated, largest which measures up to 8 mm. No right nephrolithiasis or ureteral calculi identified. No pneumoperitoneum or pneumatosis. No fracture. Convex right curvature of the lumbar spine with multilevel degenerative changes. The bones appear mildly demineralized. IMPRESSION: Left nephrolithiasis without ureteral calculi identified. Electronically signed by: Dirk Reyna M.D. 01/16/2018 10:10 AM Dictated Date/Time: 01/16/2018 10:08 AM
== END | disposition home or self-care (01) ==
LOC: C.RADBC 09:38
PROVIDERS: ATTEND Urology
DX: N20.0 Calculus of kidney (principal); N40.1 Benign prostatic hyperplasia with lower urinary tract symptoms

== ENCOUNTER → 2018-01-20 | Outpatient (CLI) | payer OTHER, BC ==
--- NOTE | 2018-01-20 11:15 | DIAGNOSTIC IMAGING REPORT ---
RENAL ULTRASOUND CLINICAL HISTORY: Benign localized hyperplasia of the prostate with urinary obstruction. COMPARISON STUDY: Abdominal ultrasound January 04, [address] of the abdomen and pelvis January 02, 2018. TECHNIQUE: Sonography of the kidneys and the urinary bladder was performed. FINDINGS: The right kidney measures 10.8 cm in maximal dimension and the left measures 8.1 cm. This study is compromised by suboptimal penetration. Left renal calculi are noted. There is no left hydronephrosis. There is mild right collecting system dilatation without smita hydronephrosis. The 9 mm lesion within the lower pole of the right kidney shown on CT of January 02, 2018 is not visualized on this exam. A few renal cysts are noted within the kidneys. Note is made of a possible 2.1 cm lesion arising from the lower pole of the right kidney. Its unclear whether this represents a portion of the renal parenchyma or a solid renal lesion. Neither ureteral jet was identified. IMPRESSION: 1. Mild right collecting system dilatation. No smita hydronephrosis. 2. Left-sided nephrolithiasis. 3. Possible 2.1 cm lesion arising from the lower pole of the right kidney. Its unclear whether this represents a portion of the renal parenchyma or a solid renal lesion. A renal protocol CT might be considered. Alternatively, sonographic follow-up could be performed in 6 months. 4. Nonvisualization of the 9 mm right lower pole renal lesion shown on CT of January 02, 2018 due to technique. Electronically signed by: Julien Bardales M.D. 01/20/2018 11:13 AM Dictated Date/Time: 01/20/2018 11:04 AM
== END | disposition home or self-care (01) ==
LOC: C.ULTRBC 10:24
PROVIDERS: ATTEND Urology
DX: N40.1 Benign prostatic hyperplasia with lower urinary tract symptoms (principal); N20.0 Calculus of kidney

== ENCOUNTER 2025-03-13 09:24 | Inpatient (IN) ==
[2025-03-13] MEDS: OPTIRAY 320 125ml IV ONE (10:16)
--- NOTE | 2025-03-13 10:17 | Emergency Department Note ---
Impression & Plan Acute cerebrovascular accident (CVA) ED Provider Note NAME: Yumi CONTI AGE: 89 SEX: M ARRIVES VIA: Walk-In INFORMANT: Patient, family ED PROVIDER(S): Deny Thornton MD CHIEF COMPLAINT: Dizziness PLAN: Disposition: Hospitalization MEDICAL DECISION MAKING: Patient with dizziness, seems to be more of a ataxia and difficulty walking rather than lightheadedness or near syncope. Patient will be initiated as a stroke workup, he is out of window for TNK and does not have signs of large vessel occlusion on exam. Will await CT, CTA, blood work. May require MRI and hospitalization for dizziness with hypertension and new onset and an 89-year-old. Triage Nursing notes reviewed and agree them. [Additional history obtained from] [] [Prior medical records reviewed] [] Vital Signs: reviewed and remarkable for Hypertension, normal heart rate Differential diagnosis: Acute CVA, vertigo, peripheral syndrome, central vertigo, brain mass, dehydration, acute coronary syndrome, infection, UTI ER treatment provided: Patient treated with meclizine for symptomatic control, also given aspirin and Plavix per neurology recommendations for likely acute CVA without being a candidate for TNK Diagnostics interpreted by me: ECG: Sinus bradycardia with PACs, no ST segment changes, no T wave inversions, normal QRS complexes Cardiac Monitoring: Sinus bradycardia Laboratory studies: See below Imaging studies: See below Consultation(s): Case discussed with [facility], agree with plan of care HPI: 89/M arrives for evaluation of . Dizziness, Patient states that last night after eating dinner he started feeling dizzy feeling like he was having trouble walking, trouble standing up. He states that occasionally it feels spinning, he does not feel that it was necessary lightheadedness or near syncopal symptoms. Patient states he typically ambulates without any assistance. He has no chest pain, shortness of breath, prior to 8 PM last night he was in his normal state of health. Denies any history of similar episodes in the past. He feels like it is something he ate, however he has no vomiting or diarrhea. Patient's blood pressure was noted to be elevated. Denies any neck pain, headache.Patient feels okay as long as he is lying down. ROS: See above HPI for pertinent positives & negatives. A total of 10 systems reviewed and were otherwise negative. PAST MEDICAL HISTORY:See Below PAST SURGICAL HISTORY:See Below FAMILY HISTORY:See Below SOCIAL HISTORY:See Below HOME MEDICATIONS:See Below ALLERGIES:See Below VITALS:See Below PHYSICAL EXAMINATION: Gen: No acute distress, generally well appearing Eyes: PERRL, no redness or injection, EOMI Neck: Supple, normal ROM CV: S1, S2, No murmurs, no lower extremity edema Pulm: CTA bilaterally, no increased work of breathing, no wheezing GI: Abd soft, nontender, normal bowel sounds, no distension : No CVA tenderness, no suprapubic abdominal tenderness or distension Neuro: No acute focal neuro deficits, normal strength and sensation, Coordination seems intact, finger-nose normal, rapid alternating movement normal. Stroke scale negative by my evaluation Skin: No rashes, wounds, or erythema. ED COURSE: Times/Reassessments: Patient reassessed, still had some persistent dizziness but while laying he feels generally well. No acute ataxia or finger to nose pointing Case discussed with [facility], They reviewed the CTA findings, with the patient evaluation and agree with plan for Plavix, aspirin administration and hospitalization for MRI and stroke workup. Not a candidate for any neurointerventional treatments, thrombectomy and out of the window for TNK. Also does not seem to have disabling deficits at this time but regardless require hospitalization for stroke workup. Will allow for permissive hypertension for now. Procedures: none PDMP:reviewed and no issues Critical Care: None Deny Thornton MD Past Med/Surg History Problem List (Updated 03/13/25 @ 17:07 by Deny Thornton MD) Acute cerebrovascular accident (CVA) (Acute) Stroke-like symptoms Rupture of left proximal biceps tendon Traumatic rupture of subscapularis tendon of left shoulder Tear of left rotator cuff Injury of right acromioclavicular joint Right rotator cuff tear BPH NOS w ur obs/LUTS Flank pain Type 2 diabetes mellitus (Acute) Nephrolithiasis (Acute) Shingles (Acute) Bronchitis (Acute) Hyperglycemia (Acute) CLL (chronic lymphocytic leukemia) (Acute) Dehydration (Acute) Hyperglycemia (Acute) Hypotension (Acute) Prerenal acute renal failure (Acute) Thrombocytopenia (Acute) Medical History Adverse reaction to anesthetic agent No pertinent past medical history Surgical History No pertinent past surgical history Family History Other Diabetes Nephrolithiasis Social History Smoking Status: Current some day smoker Tobacco Type: Cigarettes Hx Alcohol Use: No Hx Substance Use: No Preferred Language: Peruvian marital status: Current Living Situation: Spouse current occupational status: retired Feels Safe at Home: Yes Allergies Allergies Allergy/AdvReac Type Severity Reaction Status Date / Time cephalexin Allergy Severe Rash Verified 06/18/24 10:00 No Known Drug Allergies Allergy Verified 06/18/24 10:00 Home Meds Home Medications Medication Instructions Recorded Confirmed gabapentin 600 mg tablet,extended 600 mg PO QAM 01/11/19 03/13/25 release 24 hr aspirin 81 mg tablet,delayed 81 mg PO DAILY 03/04/21 03/13/25 release multivitamin 1 tab PO DAILY 03/04/21 03/13/25 omega-3 fatty acids 1,000 mg 1,000 mg PO DAILY 03/04/21 03/13/25 capsule valacyclovir 500 mg tablet 500 mg PO Q OTHER DAY 03/04/21 03/13/25 amlodipine 10 mg tablet 10 mg PO QAM 03/13/25 03/13/25 latanoprost 0.005 % eye drops 1 drp ophthalmic (eye) HS 03/13/25 03/13/25 Results & Data (ED) Vital Signs Vital Signs - 24 hr 03/13/25 09:26 03/13/25 09:47 03/13/25 09:47 Temperature 36.6 C Temperature Source Temporal Artery Scan Pulse Rate 59 L Pulse Rate [Apical] 55 L Pulse Rhythm Pulse Rhythm [Apical] Regular Pulse Strength [Apical] Normal Respiratory Rate 18 17 Respiratory Effort / Characteristics Non-Labored Spontaneous Respiratory Depth Normal Respiratory Pattern Regular Blood Pressure 164/81 H Blood Pressure [Left Arm] 197/80 H Blood Pressure Mean 108 Blood Pressure Mean [Left Arm] 119 Blood Pressure Position [Left Arm] Lying Pulse Oximetry 100 99 Oxygen Delivery Method Room Air Room Air Room Air Sepsis New/Unexplained Change in Mental Status No Sepsis Action Taken by Nursing No Action Required 03/13/25 09:47 03/13/25 10:06 03/13/25 10:21 Temperature Temperature Source Pulse Rate 54 L Pulse Rate [Apical] 56 L 60 Pulse Rhythm Regular Pulse Rhythm [Apical] Regular Regular Pulse Strength [Apical] Normal Normal Respiratory Rate 21 19 16 Respiratory Effort / Characteristics Non-Labored Spontaneous Non-Labored Spontaneous Respiratory Depth Normal Normal Respiratory Pattern Regular Regular Blood Pressure Blood Pressure [Left Arm] 183/96 H Blood Pressure Mean Blood Pressure Mean [Left Arm] 125 Blood Pressure Position [Left Arm] Lying Pulse Oximetry 99 99 98 Oxygen Delivery Method Room Air Room Air Room Air Sepsis New/Unexplained Change in Mental Status Sepsis Action Taken by Nursing 03/13/25 10:53 03/13/25 11:32 03/13/25 11:35 Temperature Temperature Source Pulse Rate 59 L Pulse Rate [Apical] 58 L 57 L Pulse Rhythm Pulse Rhythm [Apical] Regular Regular Pulse Strength [Apical] Normal Normal Respiratory Rate 20 18 Respiratory Effort / Characteristics Non-Labored Spontaneous Non-Labored Spontaneous Respiratory Depth Normal Normal Respiratory Pattern Regular Regular Blood Pressure Blood Pressure [Left Arm] 188/94 H 199/90 H Blood Pressure Mean Blood Pressure Mean [Left Arm] 125 126 Blood Pressure Position [Left Arm] Lying Lying Pulse Oximetry 99 96 Oxygen Delivery Method Room Air Room Air Sepsis New/Unexplained Change in Mental Status Sepsis Action Taken by Nursing 03/13/25 11:45 03/13/25 12:00 Temperature Temperature Source Pulse Rate Pulse Rate [Apical] 60 57 L Pulse Rhythm Pulse Rhythm [Apical] Regular Regular Pulse Strength [Apical] Normal Normal Respiratory Rate 19 21 Respiratory Effort / Characteristics Non-Labored Spontaneous Non-Labored Spontaneous Respiratory Depth Normal Normal Respiratory Pattern Regular Regular Blood Pressure Blood Pressure [Left Arm] 170/75 H 183/93 H Blood Pressure Mean Blood Pressure Mean [Left Arm] 106 123 Blood Pressure Position [Left Arm] Lying Lying Pulse Oximetry 98 97 Oxygen Delivery Method Room Air Room Air Sepsis New/Unexplained Change in Mental Status Sepsis Action Taken by Nursing Laboratory Data Mildly elevated creatinine, glucose, reassuring troponin, elevated white blood cell count, but a history of similar but not as severe leukocytosis in the past. Do not think necessarily related to patient's symptoms given CT scan findings and lack of infectious symptoms or source. 03/13/25 09:45 03/13/25 09:45 Lab Results 03/13/25 Range/Units 09:45 WBC 20.09 H (4.8-10.8) K/ul RBC 4.25 L (4.70-6.10) M/uL Hgb 12.7 L (14.0-18.0) g/dl Hct 38.4 L (42.0-52.0) % MCV 90.4 (80.0-100.0) fL MCH 29.9 (25.0-34.0) pg MCHC 33.1 (32.0-36.0) g/dL RDW Std Deviation 40.8 (36.4-46.3) fL RDW Coeff of Melanie 12.5 (11.5-14.5) % Plt Count 153 (130-400) K/uL MPV 9.2 L (9.4-12.4) fL Immature Gran % (Auto) 0.2 % Neut % (Auto) 24.8 % Lymph % (Auto) 72.2 % [place] % (Auto) 2.4 % Eos % (Auto) 0.2 % Baso % (Auto) 0.2 % Neut # (Auto) 5.13 (1.40-6.50) K/uL Lymph # (Auto) 14.94 H (1.20-3.40) K/uL [place] # (Auto) 0.49 (0.11-0.59) K/uL Eos # (Auto) 0.04 (0.00-0.50) K/uL Baso # (Auto) 0.05 (0.00-0.20) K/uL Immature Gran # (Auto) 0.04 (0.01-0.20) K/uL Smudge Cells Present PT 10.2 (9.0-12.0) Seconds INR 1.0 (0.9-1.1) APTT 29 (21-31) Seconds PTT Ratio 1.1 Sodium 136 (136-145) mmol/L Potassium 4.4 (3.5-5.1) mmol/L Chloride 100 (98-107) mmol/L Carbon Dioxide 29 (21-32) mmol/L Anion Gap 7 (3-11) BUN 50 H (6-23) mg/dl Creatinine 2.26 H (0.6-1.4) mg/dl Est Cr Clr Drug Dosing 19.3 ml/min eGFR 27.21 BUN/Creatinine Ratio 22.1 H (10-20) Glucose 229 H (70-99(Fasting)) mg/dl Calcium 9.4 (8.6-10.3) mg/dl Magnesium 2.2 (1.7-2.4) mg/dl Total Bilirubin 0.6 (0.2-1.0) mg/dl AST 15 (13-39) U/L ALT 10 (7-52) U/L Alkaline Phosphatase 76 (34-104) U/L Troponin I High Sens 19.4 (0-20) pg/ml Total Protein 6.6 (6.0-8.3) gm/dl Albumin 4.2 (3.4-5.0) gm/dl Globulin 2.4 L (2.5-4.0) gm/dl Albumin/Globulin Ratio 1.8 (0.9-2) Administered Medications Atorvastatin Calcium (Atorvastatin 40 Mg Tab) [facility] [place]: 04/12/25 15:01 Last Admin: 03/13/25 16:53 Dose: 40 mg Documented By: PRINCE Discontinued Medications Aspirin (Aspirin 81 Mg Chew) 81 mg PO NOW STA Stop: 03/13/25 11:34 Last Admin: 03/13/25 11:39 Dose: 81 mg Documented By: LINA Clopidogrel Bisulfate (Clopidogrel Bisulfate 300 Mg Tab) 300 mg PO NOW STA Stop: 03/13/25 11:34 Last Admin: 03/13/25 11:39 Dose: 300 mg Documented By: LINA Ioversol (Optiray 320 125ml) 112 ml IV ONCE ONE Stop: 03/13/25 10:17 Last Admin: 03/13/25 10:16 Dose: 112 ml Documented By: CARLOS Meclizine HCl (Meclizine Hcl 25 Mg Tab) 25 mg PO NOW STA Stop: 03/13/25 10:11 Last Admin: 03/13/25 10:39 Dose: 25 mg Documented By: LINA Imaging Data Attestation: I personally reviewed and interpreted this imaging study as follows: My Impression: Patient CT scan shows evidence of distal vessel occlusion in the cerebellar arteries, this would explain some of the patient's symptoms and blood pressure, suspicious for a small stroke. Will likely require MRI for definitive testing. Not a true large vessel occlusion as it is not a candidate for a target thrombectomy. Case discussed with [facility] who is in agreement. Radiologist's Impression: Chest X-Ray 03/13/25 09:33 XR chest 1V portable CLINICAL HISTORY: stroke alert COMPARISON STUDY: 08/16/2014 FINDINGS: Heart size and pulmonary vasculature are normal. No consolidation or pleural effusion. No pneumothorax. Stable old left rib fractures. IMPRESSION: No acute findings. ACT 112: Negative or not required by law. Electronically signed by: Yimi Corona M.D. 03/13/2025 10:[address] 03/13/25 10:06 CT head/brain wo con CLINICAL HISTORY: neuro deficit, acute stroke suspected. TECHNIQUE: Multiple axial CT images of the head were obtained without contrast. A dose lowering technique was utilized adhering to the principles of ALARA. COMPARISON: None FINDINGS: Exam was repeated due to motion. No intracranial hemorrhage seen. No mass effect, midline shift, or hydrocephalus. No skull fracture seen. Visualized paranasal sinuses and mastoid air cells are clear. IMPRESSION: No acute findings. ACT 112: Negative or not required by law. The above report was generated using voice recognition software. It may contain grammatical, syntax or spelling errors. Electronically signed by: Yimi Corona M.D. 03/13/2025 10:45 AM Head CTA 03/13/25 10:06 CTA ANGIOGRAPHY OF THE HEAD CLINICAL HISTORY: neuro deficit, acute stroke suspected COMPARISON STUDY: No previous studies for comparison. TECHNIQUE: Helical axial images of the head were obtained following uneventful intravenous administration of 112 cc of Optiray. Sagittal and coronal reconstructions were viewed as well as maximal intensity projections on an independent 3-D workstation. Automated exposure control was utilized for the study. A dose lowering technique was utilized adhering to the principles of ALARA. CT DOSE: 1645.2 mGy.cm FINDINGS: Please note that the head CT will be reported separately. No acute intracranial hemorrhage, midline shift or mass effect is present. Ventricular system is normal. Basal cisterns are patent. Moderate to severe multifocal stenoses within numerous intracranial vessels are present. These include moderate stenosis of the bilateral cavernous carotid and supraclinoid internal carotid arteries. No definite vessel occlusion within the anterior circulation is present. The plaque within the cavernous and supraclinoid ICAs. There are severe multifocal stenoses within the right posterior inferior cerebellar artery. There is possible distal occlusion of this vessel on image 48 of 254. There is moderate multifocal narrowing within the basilar artery. There is severe narrowing of the right P2/P3 segment. There also moderate to severe stenosis within the left posterior cerebral artery. 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 Possible distal occlusion of the right posterior inferior cerebellar artery. This could be correlated with clinical evidence for an acute cerebellar infarct and MRI if indicated. ACT 112: Negative or not required by law. Electronically signed by: Julien Bardales M.D. 03/13/2025 10:58 AM Neck CTA 03/13/25 10:06 CT ANGIOGRAM OF THE NECK CLINICAL HISTORY: Neurological deficit. Stroke like symptoms. COMPARISON STUDY: No priors TECHNIQUE: Following the IV administration of 112 of Optiray 320, CT angiogram of the neck was performed from the aortic arch to the skull base. Images are reviewed in the axial, sagittal, and coronal planes. 3-D MIPS images are created and assessed. IV contrast was administered without complication. All measurements were calculated based on NASCET criteria. A dose lowering technique was utilized adhering to the principles of ALARA. FINDINGS: Thoracic aorta: There is atherosclerotic calcification of the thoracic aorta. Visualized portions of the thoracic aorta are normal in caliber. The aortic arch demonstrates standard 3-vessel anatomy. Right carotid arterial system: The right common carotid artery is widely patent, as are the right internal and external carotid arteries. Calcified plaque is seen in the carotid bulb. Left carotid arterial system: The left common carotid artery is widely patent, as are the left internal and external carotid arteries. Mild plaque is seen in the carotid bulb. Vertebral arteries: Widely patent bilaterally and codominant in the neck. Subclavian arteries: Widely patent bilaterally. Intracranial vasculature: The visualized intracranial vessels at the skull base are patent. See report today's CT angiogram of the brain for detailed intracranial findings. Jugular veins: The left internal jugular vein is patent. The right internal jugular vein is diminutive and not well-visualized. Brain parenchyma: The visualized brain parenchyma the skull base is within normal limits. Lung apices: Partially visualized upper lobe lung parenchyma appears clear. Soft tissues: The visualized pharyngeal soft tissues are normal in appearance noting angiographic phase technique. The oropharyngeal airway appears widely patent. The thyroid gland is normal in size and heterogeneous in attenuation. The salivary glands are normal in appearance. No cervical lymphadenopathy is seen. Skeletal structures: The skeletal structures are osteopenic. The visualized calvarium at the skull base appears intact. The imaged cervical spine is maintained noting multilevel spondylosis. Sinuses and mastoids: The visualized paranasal sinuses are clear. The mastoid air cells are well pneumatized. IMPRESSION: Unremarkable CT angiogram of the neck. ACT 112: Negative or not required by law. Electronically signed by: Eric Jordan M.D. 03/13/2025 10:56 AM Discharge Plan Visit Data Chief Complaint: Dizziness Stated Complaint: DIZZINESS ED Provider: Deny Thornton Discharge Problem: Acute cerebrovascular accident (CVA) Patient Disposition: Admitted As Inpatient Condition: Fair Discharge Instructions Interventions: ED Discharge Assessment Last Done: 03/13/25 14:23
[2025-03-13 10:19] LABS: Hematocrit (blood only) 38.4 % (42.0-52.0); Hemoglobin 12.7 g/dl (14.0-18.0); Mean Corpuscular Hemoglobin 29.9 pg (25.0-34.0); Mean Corpuscular Volume 90.4 fL (80.0-100.0); Platelet Count 153 K/uL (130-400); RDW Standard Deviation 40.8 fL (36.4-46.3); Red Blood Count 4.25 M/uL (4.70-6.10); White Blood Count 20.09 K/ul (4.8-10.8)
[2025-03-13] MEDS: MECLIZINE HCL 25 MG TAB PO STA (10:39)
[2025-03-13 10:43] LABS: Alanine Aminotransferase 10.0 U/L (7-52); Albumin Globulin Ratio 1.8 (0.9-2); Albumin Level 4.2 gm/dl (3.4-5.0); Alkaline Phosphatase 76.0 U/L (34-104); Anion Gap 7.0 (3-11); Bilirubin,Total 0.6 mg/dl (0.2-1.0); Blood Urea Nitrogen 50.0 mg/dl (6-23); Calcium 9.4 mg/dl (8.6-10.3); Carbon Dioxide 29.0 mmol/L (21-32); Chloride 100.0 mmol/L (98-107); Creatinine Clr Calc Pharmacy 19.3 ml/min; Globulin 2.4 gm/dl (2.5-4.0); Glucose 229.0 mg/dl (70-99(Fasting)); Magnesium 2.2 mg/dl (1.7-2.4); Potassium 4.4 mmol/L (3.5-5.1); Sodium 136.0 mmol/L (136-145); Total Protein 6.6 gm/dl (6.0-8.3)
--- NOTE | 2025-03-13 10:46 | CT Scan Report ---
CT head/brain wo con CLINICAL HISTORY: neuro deficit, acute stroke suspected. TECHNIQUE: Multiple axial CT images of the head were obtained without contrast. A dose lowering tech nique was utilized adhering to the principles of ALARA. COMPARISON: None FINDINGS: Exam was repeated due to motion. No intracranial hemorrhage seen. No mass effect, midline s hift, or hydrocephalus. No skull fracture seen. Visualized paranasal sinuses and mastoid air cells ar e clear. IMPRESSION: No acute findings. ACT 112: Negative or not required by law. The above report was generated using voice recognition software. It may contain grammatical, syntax o r spelling errors. Electronically signed by: Yimi Corona M.D. 03/13/2025 10:45 AM
[2025-03-13 10:48] LABS: INR 1.0 (0.9-1.1); Partial Thromboplastin Time 29 Seconds (21-31); Prothrombin Time 10.2 Seconds (9.0-12.0)
--- NOTE | 2025-03-13 10:57 | CT Scan Report ---
CT ANGIOGRAM OF THE NECK CLINICAL HISTORY: Neurological deficit. Stroke like symptoms. COMPARISON STUDY: No priors TECHNIQUE: Following the IV administration of 112 of Optiray 320, CT angiogram of the neck was perfor med from the aortic arch to the skull base. Images are reviewed in the axial, sagittal, and coronal p lanes. 3-D MIPS images are created and assessed. IV contrast was administered without complication. A ll measurements were calculated based on NASCET criteria. A dose lowering technique was utilized adh ering to the principles of ALARA. FINDINGS: Thoracic aorta: There is atherosclerotic calcification of the thoracic aorta. Visualized portions of the thoracic aorta are normal in caliber. The aortic arch demonstrates standard 3-vessel anatomy. Right carotid arterial system: The right common carotid artery is widely patent, as are the right int ernal and external carotid arteries. Calcified plaque is seen in the carotid bulb. Left carotid arterial system: The left common carotid artery is widely patent, as are the left leadership program intern al and external carotid arteries. Mild plaque is seen in the carotid bulb. Vertebral arteries: Widely patent bilaterally and codominant in the neck. Subclavian arteries: Widely patent bilaterally. Intracranial vasculature: The visualized intracranial vessels at the skull base are patent. See repor t today's CT angiogram of the brain for detailed intracranial findings. Jugular veins: The left internal jugular vein is patent. The right internal jugular vein is diminutiv e and not well-visualized. Brain parenchyma: The visualized brain parenchyma the skull base is within normal limits. Lung apices: Partially visualized upper lobe lung parenchyma appears clear. Soft tissues: The visualized pharyngeal soft tissues are normal in appearance noting angiographic pha se technique. The oropharyngeal airway appears widely patent. The thyroid gland is normal in size and heterogeneous in attenuation. The salivary glands are normal in appearance. No cervical lymphadenopa thy is seen. Skeletal structures: The skeletal structures are osteopenic. The visualized calvarium at the skull ba se appears intact. The imaged cervical spine is maintained noting multilevel spondylosis. Sinuses and mastoids: The visualized paranasal sinuses are clear. The mastoid air cells are well pneu matized. IMPRESSION: Unremarkable CT angiogram of the neck. ACT 112: Negative or not required by law. Electronically signed by: Eric Jordan M.D. 03/13/2025 10:56 AM
--- NOTE | 2025-03-13 10:59 | CT Scan Report ---
CTA ANGIOGRAPHY OF THE HEAD CLINICAL HISTORY: neuro deficit, acute stroke suspected COMPARISON STUDY: No previous studies for comparison. TECHNIQUE: Helical axial images of the head were obtained following uneventful intravenous administr ation of 112 cc of Optiray. Sagittal and coronal reconstructions were viewed as well as maximal inten sity projections on an independent 3-D workstation. Automated exposure control was utilized for the study. A dose lowering technique was utilized adhering to the principles of ALARA. CT DOSE: 1645.2 mGy.cm FINDINGS: Please note that the head CT will be reported separately. No acute intracranial hemorrhage, midline shift or mass effect is present. Ventricular system is normal. Basal cisterns are patent. Mo derate to severe multifocal stenoses within numerous intracranial vessels are present. These include moderate stenosis of the bilateral cavernous carotid and supraclinoid internal carotid arteries. No d efinite vessel occlusion within the anterior circulation is present. The plaque within the cavernous and supraclinoid ICAs. There are severe multifocal stenoses within the right posterior inferior cereb ellar artery. There is possible distal occlusion of this vessel on image 48 of 254. There is moderate multifocal narrowing within the basilar artery. There is severe narrowing of the right P2/P3 segment . There also moderate to severe stenosis within the left posterior cerebral artery. IMPRESSION: Numerous moderate to severe multifocal stenoses within the intracranial vessels due to a therosclerosis. Possible distal occlusion of the right posterior inferior cerebellar artery. This cou ld be correlated with clinical evidence for an acute cerebellar infarct and MRI if indicated. ACT 112: Negative or not required by law. Electronically signed by: Julien Bardales M.D. 03/13/2025 10:58 AM
[2025-03-13] MEDS: CLOPIDOGREL BISULFATE 300 MG TAB PO STA (11:39)
[2025-03-13] MEDS: ASPIRIN 81 MG CHEW PO STA (11:39)
[2025-03-13 12:14] LABS: Immature Granulocytes # (auto) 0.04 K/uL (0.01-0.20); Immature Granulocytes % (auto) 0.2 %; Smudge Cells Present
--- NOTE | 2025-03-13 12:50 | History & Physical Report ---
<Statement entered by Gabe Guzman, - 03/13/25 14:48> I have seen and examined the patient and have discussed the case with the advance practice provider. I have reviewed the advanced practitioner's documentation, and I agree with, and take responsibility for that plan of care. Patient feeling well and ED. States no more lightheadedness and dizziness. He did seem to describe some vertigo type symptoms earlier this morning when he got out of bed. He also without suggestion turned his head back and forth to see if he can reproduce his symptoms. This makes me think that he may have had some vertiginous symptoms with changes of positions. No vertiginous symptoms with sitting up or lying back quickly here in the ED. No other focal deficits MRI of the brain negative for acute stroke. Continue with full stroke eval Request PT to evaluate for vestibular dysfunction. Suspect possible vestibular neuronitis versus benign positional vertigo. Patient's history also suggest possible vagal lightheadedness/dizziness. Patient reports feeling flushed just prior to getting up out of bed when he experienced lightheadedness and dizziness. Check orthostatic vital signs. Daughter at bedside updated the plan of care as well. I spent a total of 22 minutes coordinating, documenting, and providing care for this patient excluding time spent by another provider/QHP. Date of Service March 13, 2025 Assessment & Plan (1) Stroke-like symptoms: (2) CLL (chronic lymphocytic leukemia): (3) Type 2 diabetes mellitus: (4) BPH NOS w ur obs/LUTS: Plan Mr. Garay is an 89 year old male that presents to the [facility] ED with CVA-like symptoms. 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 Possible distal occlusion of the right posterior inferior cerebellar artery. Head CT without midline shift, ICH. 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 Baseline creatinine 2's Pt will be admitted for further evaluation and management of his stroke like symptoms. Obtain brain MRI, ECHO with bubble, Lipid panel, start high dose Lipitor, keep NPO until dysphagia screening passed, Neuro consult. SSI while inpatient. PT/OT for also eval for possible BPPV Stroke like symptoms: Head CTA: moderate-severe L posterior cerebellar artery stenosis, multifocal stenosis intracranial atherosclerosis, possible distal occlusion of R. Post ICA Takes baby ASA. Plavix given in ED; continue both 03/14 Brain MRI ordered Troponin negative ECHO ordered; last ECHO was in 2017; EF 60-64%, G1DDx, no sig valve changes. Neuro consult placed Lipid panel, Repeat A1C NIH 0 on examination If passes dysphagia screen, ok for diet Started on Lipitor 40 mg PT/OT; teds + SCDs for now HTN: Chronic Takes Amlodipine (took it this AM); continue CLL: WBC 20.09 Diagnosed 35+ years ago Follows with just PCP, no specialist and has not required any treatment for years CKD: Creatinine 2.26; baseline 2's eGFR 27 Disposition: PCP: Dr. Lynch Code Status: Full Code VTE Prophylaxis: Teds and SCDs for now I spent a total of 82 minutes coordinating, documenting, and providing care for this patient excluding time spent inthe performance of separately billed services or time spent by another provider/QHP. History of Present Illness Chief Complaint: dizziness and ataxia Primary Care Provider: Gabino Lynch MD Mr. Garay is an 89 year old male that presents to the [facility] ED with ataxia that he describes as starting last evening when he went to bed. Prior to last evening he states he was his normal self. He did feel like he had a fever last night. No recent upper respiratory symptoms including cough, SOB. 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 Possible distal occlusion of the right posterior inferior cerebellar artery. Head CT without midline shift, ICH. In the ED stroke telehealth was consulted; outside TNK window; no indication for thrombectomy, etc. Recommend continued stroke work up. His last A1c was 11/21/24 6.7. His last ECHO was in 2016; EF 60-64%, G1DDx, no significant valve changes. Additional past medical history includes bba-emuyjlf-fululzswi diabetes, CLL (diagnosed 35+ years ago), and BPH. He smokes 5 cigars a day and chews tobacco daily. No alcohol or rec drug use. 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 Baseline creatinine 2's. 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 He denies urine or bowel changes. Does not use any cane/walker for ambulation assistance. On examination, patient is a well nourished male in no apparent distress. He is able to speak in complete sentences, no aphagia or residual strength issues identified. NIH 0. Lungs CTA, left glass eye with drainage that he states is normal. Pt will be admitted for further evaluation and management of his stroke like symptoms. Obtain brain MRI, ECHO with bubble, Lipid panel, start high dose Lipitor, keep NPO until dysphagia screening passed, Neuro consult. SSI while inpatient. PT/OT for also eval for possible BPPV. Please see A/P for further details. Allergies Allergy/AdvReac Type Severity Reaction Status Date / Time cephalexin Allergy Severe Rash Verified 06/18/24 10:00 No Known Drug Allergies Allergy Verified 06/18/24 10:00 Home Medications Medication Instructions Recorded Confirmed Type gabapentin 600 mg tablet,extended 600 mg PO QAM 01/11/19 03/13/25 History release 24 hr aspirin 81 mg tablet,delayed 81 mg PO DAILY 03/04/21 03/13/25 History release multivitamin 1 tab PO DAILY 03/04/21 03/13/25 History omega-3 fatty acids 1,000 mg 1,000 mg PO DAILY 03/04/21 03/13/25 History capsule valacyclovir 500 mg tablet 500 mg PO Q OTHER DAY 03/04/21 03/13/25 History amlodipine 10 mg tablet 10 mg PO QAM 03/13/25 03/13/25 History latanoprost 0.005 % eye drops 1 drp ophthalmic (eye) HS 03/13/25 03/13/25 History Past Med/Surg History Problem List Stroke-like symptoms Rupture of left proximal biceps tendon Traumatic rupture of subscapularis tendon of left shoulder Tear of left rotator cuff Injury of right acromioclavicular joint Right rotator cuff tear BPH NOS w ur obs/LUTS Flank pain Type 2 diabetes mellitus (Acute) Nephrolithiasis (Acute) Shingles (Acute) Bronchitis (Acute) Hyperglycemia (Acute) CLL (chronic lymphocytic leukemia) (Acute) Dehydration (Acute) Hyperglycemia (Acute) Hypotension (Acute) Prerenal acute renal failure (Acute) Thrombocytopenia (Acute) Medical History Adverse reaction to anesthetic agent No pertinent past medical history Surgical History No pertinent past surgical history Family History Other Diabetes Nephrolithiasis Social History Smoking Status: Current some day smoker Tobacco Type: Cigarettes Hx Alcohol Use: No Hx Substance Use: No Preferred Language: Tunisian marital status: Current Living Situation: Spouse current occupational status: retired Feels Safe at Home: Yes Review of Systems Review of Systems: Neuro: (-) Falls, trauma, slurred speech HEENT: (-) WADSWORTH, dizziness, dysphagia, visual or auditory changes CV: (-) CP, palpitations, swelling Resp: (-) SOB GI: (-) appetite changes, N/V/D, bowel changes : (-) urinary changes Skin: (-) rashes Psych: (-) anxiety, depression Physical Exam Physical Exam: Neuro: AAOx4, PERRLA, no aphagia, memory changes, CNII-XII grossly intact HEENT: head normocephalic, moist mucus membranes. Left eye (glass eye) with drainage (common) CV: S1/S2, (-) M/G/R, (-) edema, cap refill < 3 seconds Resp: Lungs CTA in all cody. On RA GI: Abdomen S/NT/ND, Ax4 bowel sounds, (-) CVA tenderness Musculoskeletal: 5/5 B/L UE strength, 5/5 B/L LE strength. No gait disturbance, does not use any ambulation assistive devices at baseline Skin: (-) rashes , (-) erythema. Psych: euthymic and jovial mood Results & Data Results & Data Vital Signs (Past 12 Hours) Vital Signs Temp Pulse Pulse Resp BP BP Pulse Ox 03/13/25 12:00 57 L 21 183/93 H 97 03/13/25 11:45 60 19 170/75 H 98 03/13/25 11:35 57 L 18 199/90 H 96 03/13/25 11:32 59 L 03/13/25 10:53 58 L 20 188/94 H 99 03/13/25 10:21 60 16 98 03/13/25 10:06 56 L 19 183/96 H 99 03/13/25 09:47 54 L 21 99 03/13/25 09:47 55 L 17 197/80 H 99 03/13/25 09:47 03/13/25 09:26 36.6 C 59 L 18 164/81 H 100 O2 Del Method 03/13/25 12:00 Room Air 03/13/25 11:45 Room Air 03/13/25 11:35 Room Air 03/13/25 11:32 03/13/25 10:53 Room Air 03/13/25 10:21 Room Air 03/13/25 10:06 Room Air 03/13/25 09:47 Room Air 03/13/25 09:47 Room Air 03/13/25 09:47 Room Air 03/13/25 09:26 Room Air Laboratory Results Short CBC 03/13/25 Range/Units 09:45 WBC 20.09 H (4.8-10.8) K/ul Hgb 12.7 L (14.0-18.0) g/dl Hct 38.4 L (42.0-52.0) % Plt Count 153 (130-400) K/uL BMP 03/13/25 09:45 Sodium 136 Potassium 4.4 Chloride 100 Carbon Dioxide 29 BUN 50 H Creatinine 2.26 H Glucose 229 H Calcium 9.4 Liver Function 03/13/25 Range/Units 09:45 Total Bilirubin 0.6 (0.2-1.0) mg/dl AST 15 (13-39) U/L ALT 10 (7-52) U/L Alkaline Phosphatase 76 (34-104) U/L Albumin 4.2 (3.4-5.0) gm/dl Diagnostic Findings Chest X-Ray 03/13/25 09:33 XR chest 1V portable CLINICAL HISTORY: stroke alert COMPARISON STUDY: 08/16/2014 FINDINGS: Heart size and pulmonary vasculature are normal. No consolidation or pleural effusion. No pneumothorax. Stable old left rib fractures. IMPRESSION: No acute findings. ACT 112: Negative or not required by law. Electronically signed by: Yimi Corona M.D. 03/13/2025 10:[address] 03/13/25 10:06 CT head/brain wo con CLINICAL HISTORY: neuro deficit, acute stroke suspected. TECHNIQUE: Multiple axial CT images of the head were obtained without contrast. A dose lowering technique was utilized adhering to the principles of ALARA. COMPARISON: None FINDINGS: Exam was repeated due to motion. No intracranial hemorrhage seen. No mass effect, midline shift, or hydrocephalus. No skull fracture seen. Visualized paranasal sinuses and mastoid air cells are clear. IMPRESSION: No acute findings. ACT 112: Negative or not required by law. The above report was generated using voice recognition software. It may contain grammatical, syntax or spelling errors. Electronically signed by: Yimi Corona M.D. 03/13/2025 10:45 AM Head CTA 03/13/25 10:06 CTA ANGIOGRAPHY OF THE HEAD CLINICAL HISTORY: neuro deficit, acute stroke suspected COMPARISON STUDY: No previous studies for comparison. TECHNIQUE: Helical axial images of the head were obtained following uneventful intravenous administration of 112 cc of Optiray. Sagittal and coronal reconstructions were viewed as well as maximal intensity projections on an in dependent 3-D workstation. Automated exposure control was utilized for the study. A dose lowering technique was utilized adhering to the principles of ALARA. CT DOSE: 1645.2 mGy.cm FINDINGS: Please note that the head CT will be reported separately. No acute intracranial hemorrhage, midline shift or mass effect is present. Ventricular system is normal. Basal cisterns are patent. Moderate to severe multifocal stenoses within numerous intracranial vessels are present. These include moderate stenosis of the bilateral cavernous carotid and supraclinoid internal carotid arteries. No definite vessel occlusion within the anterior circulation is present. The plaque within the cavernous and supraclinoid ICAs. There are severe multifocal stenoses within the right posterior inferior cerebellar artery. There is possible distal occlusion of this vessel on image 48 of 254. There is moderate multifocal narrowing within the basilar artery. There is severe narrowing of the right P2/P3 segment. There also moderate to severe stenosis within the left posterior cerebral artery. 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 Possible distal occlusion of the right posterior inferior cerebellar artery. This could be correlated with clinical evidence for an acute cerebellar infarct and MRI if indicated. ACT 112: Negative or not required by law. Electronically signed by: Julien Bardales M.D. 03/13/2025 10:58 AM Neck CTA 10/15/25 10:06 CT ANGIOGRAM OF THE NECK CLINICAL HISTORY: Neurological deficit. Stroke like symptoms. COMPARISON STUDY: No priors TECHNIQUE: Following the IV administration of 112 of Optiray 320, CT angiogram of the neck was performed from the aortic arch to the skull base. Images are reviewed in the axial, sagittal, and coronal planes. 3-D MIPS images are created and assessed. IV contrast was administered without complication. All measurements were calculated based on NASCET criteria. A dose lowering technique was utilized adhering to the principles of ALARA. FINDINGS: Thoracic aorta: There is atherosclerotic calcification of the thoracic aorta. Visualized portions of the thoracic aorta are normal in caliber. The aortic arch demonstrates standard 3-vessel anatomy. Right carotid arterial system: The right common carotid artery is widely patent, as are the right internal and external carotid arteries. Calcified plaque is seen in the carotid bulb. Left carotid arterial system: The left common carotid artery is widely patent, as are the left internal and external carotid arteries. Mild plaque is seen in the carotid bulb. Vertebral arteries: Widely patent bilaterally and codominant in the neck. Subclavian arteries: Widely patent bilaterally. Intracranial vasculature: The visualized intracranial vessels at the skull base are patent. See report today's CT angiogram of the brain for detailed intracranial findings. Jugular veins: The left internal jugular vein is patent. The right internal jugular vein is diminutive and not well-visualized. Brain parenchyma: The visualized brain parenchyma the skull base is within normal limits. Lung apices: Partially visualized upper lobe lung parenchyma appears clear. Soft tissues: The visualized pharyngeal soft tissues are normal in appearance noting angiographic phase technique. The oropharyngeal airway appears widely patent. The thyroid gland is normal in size and heterogeneous in attenuation. The salivary glands are normal in appearance. No cervical lymphadenopathy is seen. Skeletal structures: The skeletal structures are osteopenic. The visualized calvarium at the skull base appears intact. The imaged cervical spine is maintained noting multilevel spondylosis. Sinuses and mastoids: The visualized paranasal sinuses are clear. The mastoid air cells are well pneumatized. IMPRESSION: Unremarkable CT angiogram of the neck. ACT 112: Negative or not required by law. Electronically signed by: Eric Jordan M.D. 03/13/2025 10:56 AM Code Status & VTE Plan VTE Prophylaxis Plan VTE Prophylaxis will be ordered: Yes
--- NOTE | 2025-03-13 14:06 | Magnetic Resonance Report ---
MRI OF THE BRAIN WITHOUT IV CONTRAST CLINICAL HISTORY: Stroke like symptoms. Dizziness. COMPARISON STUDY: Head CT and CTA of the head performed earlier today. TECHNIQUE: MRI of the brain was performed utilizing various T1 and T2-weighted sequences in the axial , sagittal, and coronal planes. IV contrast was not administered for this examination. FINDINGS: Brain parenchyma: There are no foci of restricted diffusion to suggest acute infarct. No acute intrac ranial hemorrhage, midline shift or mass effect is present. No intracranial masses are identified on unenhanced exam. Scattered small white matter T2 hyperintense foci suggest mild small vessel disease. Ventricles, sulci, and cisterns: There is no hydrocephalus. The basal cisterns are patent. There are no extra-axial collections. Pituitary and sella: Unremarkable. Intracranial vasculature: Flow-voids for the major intracranial vessels are present. Orbits: Orbital contents are unremarkable. Sinuses and mastoids: Clear. Calvarium: No calvarial lesions are identified. Cervical cord: Partially visualized cervical spinal cord is normal in morphology and signal intensity . IMPRESSION: No acute intracranial findings. ACT 112: Negative or not required by law. Electronically signed by: Julien Bardales M.D. 03/13/2025 2:04 PM
[2025-03-13] MEDS ORDERED: ACETAMINOPHEN 325 MG TAB PO PRN (15:02)
[2025-03-13] MEDS ORDERED: GLUCOSE 40% GEL 15 GM TUBE PO PRN (15:02)
[2025-03-13] MEDS ORDERED: ALUMINUM/MAGNESIUM SUSP 30 ML UDC PO PRN (15:02)
[2025-03-13] MEDS ORDERED: POLYETHYLENE (MIRALAX) 17 GM PACK PO PRN (15:02)
[2025-03-13] MEDS ORDERED: DEXTROSE 50% 50 ML SYRINGE IV PRN (15:02)
[2025-03-13] MEDS ORDERED: MAGNESIUM HYDROXIDE SUSP 30 ML UDC PO PRN (15:02)
[2025-03-13] MEDS ORDERED: GLUCAGON FOR INJ 1 MG VIAL SQ PRN (15:02)
[2025-03-13] MEDS ORDERED: CARBOHYDRATES FOR HYPOGLYCEMIA PO PRN (15:02)
[2025-03-13] MEDS ORDERED: ONDANSETRON INJ 2 MG/ML 2 ML VIAL IV PRN (15:02)
[2025-03-13] MEDS ORDERED: GLUCOSE 10 TAB/TUBE PO PRN (15:02)
[2025-03-13 15:04] VITALS: RESP 18
[2025-03-13] MEDS: ATORVASTATIN 40 MG TAB PO SCH (16:53)
[2025-03-13] MEDS: INSULIN ASPART PER UNIT CHARGE SC SCH (17:58)
[2025-03-13 18:12] LABS: Appearance Urine Clear (Clear); Bacteria Urine Automated None Seen (None Seen); Cast Urine Automated 0-2 /lpf (0-2); Epithelial Cell Urine Auto 0-2 /hpf (0-2); Glucose Urine UA Negative (Negative)
[2025-03-13] MEDS: LATANOPROST 0.005% OP SOLN 2.5 ML BTL OP SCH (21:30)
[2025-03-13] MEDS: GABAPENTIN 300 MG CAP PO SCH (21:30)
[2025-03-14 07:24] LABS: Hematocrit (blood only) 36.5 % (42.0-52.0); Hemoglobin 12.0 g/dl (14.0-18.0); Mean Corpuscular Hemoglobin 29.5 pg (25.0-34.0); Mean Corpuscular Volume 89.7 fL (80.0-100.0); Platelet Count 131 K/uL (130-400); RDW Standard Deviation 40.4 fL (36.4-46.3); Red Blood Count 4.07 M/uL (4.70-6.10); White Blood Count 14.53 K/ul (4.8-10.8)
[2025-03-14 07:44] LABS: Anion Gap 6.0 (3-11); Blood Urea Nitrogen 43.0 mg/dl (6-23); Calcium 9.1 mg/dl (8.6-10.3); Carbon Dioxide 28.0 mmol/L (21-32); Chloride 105.0 mmol/L (98-107); Cholesterol 188.0 mg/dl (0-200); Creatinine Clr Calc Pharmacy 18.9 ml/min; Glucose 175.0 mg/dl (70-99(Fasting)); HDL Cholesterol 44.0 mg/dl; Potassium 4.3 mmol/L (3.5-5.1); Sodium 139.0 mmol/L (136-145); Triglycerides 98.0 mg/dl (0-150)
[2025-03-14 07:59] VITALS: TEMP 97.5
[2025-03-14 08:01] LABS: Hemoglobin A1C 6.7 % (4.5-5.6)
[2025-03-14] MEDS ORDERED: INFLUENZA VACC TS2025-26(65y+)/PF (IIV3) 0.5mL Syr IM ONE (09:00)
[2025-03-14] MEDS: ASPIRIN 81 MG ECTAB PO SCH (09:31)
[2025-03-14] MEDS: CLOPIDOGREL BISULFATE 75 MG TAB PO SCH (09:32)
[2025-03-14 11:22] VITALS: BP 150/71; PULSE 67
--- NOTE | 2025-03-14 15:47 | Hospitalist Progress Note ---
Date of Service March 14, 2025 Assessment & Plan (1) Stroke-like symptoms: (2) CLL (chronic lymphocytic leukemia): (3) Type 2 diabetes mellitus: (4) BPH NOS w ur obs/LUTS: Plan Mr. Garay is an 89 year old male that presents to the [facility] ED with CVA-like symptoms. 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 Possible distal occlusion of the right posterior inferior cerebellar artery. Head CT without midline shift, ICH. 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 Baseline creatinine 2's Pt will be admitted for further evaluation and management of his stroke like symptoms. Obtain brain MRI, ECHO with bubble, Lipid panel, start high dose Lipitor, keep NPO until dysphagia screening passed, Neuro consult. SSI while inpatient. PT/OT for also eval for possible BPPV Stroke like symptoms, Dizziness: Stenosis of R Inferior Posterior Cerebellar Artery Head CTA: moderate-severe L posterior cerebellar artery stenosis, multifocal stenosis intracranial atherosclerosis, possible distal occlusion of R. Post ICA Takes baby ASA. Plavix given in ED; continue both 03/14 Brain MRI ordered Troponin negative ECHO ordered; last ECHO was in 2017; EF 60-64%, G1DDx, no sig valve changes. Neuro consult placed Lipid panel, Repeat A1C NIH 0 on examination If passes dysphagia screen, ok for diet Started on Lipitor 40 mg PT/OT; teds + SCDs for now 03/14 dizziness resolved Brain MRI: no acute CVA Echo: preserved EF, no valvular abnormalities, no ASD, Gr 1 Diastolic Dysfunction Plavix added to ASA Orthostatic VS: negative awaiting Neuro eval HTN: Chronic Takes Amlodipine (took it this AM); continue -- BP improving CLL: WBC 20.09 Diagnosed 35+ years ago Follows with just PCP, no specialist and has not required any treatment for years CKD IV: Creatinine 2.26; baseline 2's eGFR 27 Disposition: PCP: Dr. Lynch Code Status: Full Code VTE Prophylaxis: Teds and SCDs for now plan of care discussed with patient and family in detail and at length all questions answered they are understanding, agreeable, comfortable with the plan of care Admission and Anticipated Discharge Date Admission Date: March 13, 2025 Subjective seen resting in bed, comfortable states he feels fine overall dizziness resolved no new neurologic deficits no chest pain, dyspnea, palpitations no ear symptoms no other symptoms and daughter at bedside Review of Systems Review of Systems: all noted and negative except for above Physical Exam Physical Exam: General- oriented x 3, not in distress, speaks in sentences with no effort or accessory muscle use Eyes- anicteric Neck- no JVD Lungs- clear breath sounds bilaterally, no rales/wheezes Heart- normal rate, regular rhythm; no murmurs Abdomen- normal bowel sounds, nondistended, soft, nontender Extremities- no pretibial edema, no calf tenderness Neuro- alert, oriented x 3; (+) visual loss L eye; otherwise no gross focal neurologic deficits Skin- warm & dry Results & Data Results & Data Vital Signs (Past 12 Hours) Vital Signs Temp Pulse Pulse Resp BP Pulse Ox Pulse Ox 03/14/25 12:14 100 03/14/25 11:22 36.4 C L 67 18 150/71 H 98 03/14/25 08:07 56 L 03/14/25 07:58 36.4 C L 51 L 18 170/77 H 98 O2 Del Method O2 Flow Rate 03/14/25 12:14 0 03/14/25 11:22 Room Air 03/14/25 08:07 03/14/25 07:58 Room Air all noted and reviewed including below
[2025-03-14 17:03] VITALS: O2SAT 98
--- NOTE | 2025-03-14 17:04 | Neurology Consultation ---
Date of Consultation March 14, 2025 Assessment & Plan (1) Stroke-like symptoms: Symptoms of lightheadedness with a vast differential including posterior circulation TIA, hypoperfusion, hypotensive event related to dehydration, infection, arrhythmias, less likely BPPV Plan Agree to continue aspirin and Plavix for 21 days in addition to high-dose statin, this should be followed by aspirin 81 mg daily. Check UA. Zio patch upon discharge. PT OT and clinical monitoring. Telehealth Consultation Telehealth Information Telehealth Information: I performed this visit using a real-time telehealth connection between my location and the patients originating location ([facility]). After connecting through interactive tele-video, patient was identified by name and date of and/or wristband check.Patient (or authorized healthcare sales representative aircraft) was informed that this was a telemedicine visit and it was being conducted confidentially over secure lines. My office door was closed and no one else was present in the room with me.Patient (or authorized healthcare sales representative aircraft) provided consent to proceed with the visit, expressed an understanding of privacy and security of the telemedicine visit, and gave permission to have a hospital sales representative aircraft in the room in order to assist with the visit and to conduct portions of the visit, as needed. I informed the patient (or authorized healthcare sales representative aircraft) that I reviewed their record and presented the opportunity for them to ask any questions regarding the visit today. The patient agreed to participate. History of Present Illness Reason for Consultation: Lightheadedness Requesting Physician: Karel Melendez MD Attending Physician: Karel Melendez MD History of Present Illness Yumi Blanco is an 89-year-old male patient with PMH of type II DM, CLL, thrombocytopenia, who has presented to the hospital with an episode of lighth eadedness. He describes it as feeling that his head was light may be spinning at times as he was trying to ambulate from his chair to the bathroom. He felt unwell in general, generally weak, lightheaded mostly, without any visual symptoms, without any numbness or weakness or slurring in his speech. He denies any current, we tried [place] and was negative. The patient was able to stand up and ambulate Allergies Allergy/AdvReac Type Severity Reaction Status Date / Time cephalexin Allergy Severe Rash Verified 06/18/24 10:00 No Known Drug Allergies Allergy Verified 06/18/24 10:00 Home Medications Medication Instructions Recorded Confirmed Type gabapentin 600 mg tablet,extended 600 mg PO QAM 01/11/19 03/13/25 History release 24 hr aspirin 81 mg tablet,delayed 81 mg PO DAILY 03/04/21 03/13/25 History release multivitamin 1 tab PO DAILY 03/04/21 03/13/25 History omega-3 fatty acids 1,000 mg 1,000 mg PO DAILY 03/04/21 03/13/25 History capsule valacyclovir 500 mg tablet 500 mg PO Q OTHER DAY 03/04/21 03/13/25 History latanoprost 0.005 % eye drops 1 drp ophthalmic (eye) HS 03/13/25 03/13/25 History amlodipine 10 mg tablet 10 mg PO QAM #0 tabs 03/14/25 03/13/25 Rx atorvastatin 40 mg tablet 40 mg PO QAM 30 days #30 tabs 03/14/25 Rx clopidogrel 75 mg tablet 75 mg PO QAM 30 days #30 tabs 03/14/25 Rx Patient History Medical History Adverse reaction to anesthetic agent No pertinent past medical history Surgical History No pertinent past surgical history Family History Other Diabetes Nephrolithiasis Social History Smoking Status: Current every day smoker Tobacco Type: Cigars and Smokeless Tobacco (Dip or Chew) Hx Alcohol Use: No Hx Substance Use: No Preferred Language: Wolof Communication Ability: Effective 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 Beliefs That Will Affect Care: None marital status: Current Living Situation: Spouse and Family current occupational status: retired Feels Safe at Home: Yes Assistive Devices: None Review of Systems Constitutional: Patient denies weight loss, fever, chills, and night sweats Eyes: Patient denies change in vision, tearing, pain, and redness ENT: Patient denies pain, bleeding, rhinorrhea, and dysphagia Cardiovascular: Patient denies chest pain, palpitation, dyspnea at rest, and dyspnea with exertion Respiratory: Patient denies shortness of breath, cough, wheezing, and productive cough GI: Patient denies reflux, pain, constipation, and diarrhea Skin: Patient denies rash, dryness, and itching Allergies/Immune System: Patient denies rhinorrhea, seasonal allergies, reaction to current MEDS, and joint swelling Endocrine: Patient denies weight loss, weight gain, temperature intolerance, and excessive thirst Neurological: All negative unless mentioned in the HPI Physical Exam General Constitutional: Appearance normally developed Head and face: normocephalic and atraumatic Eyes: no ptosis, no anisocoria, and no dysconjugate gaze Respiratory: normal effort Cardiovascular: regular rhythm and regular rate Abdomen: non distended Skin: no rashes, lesions, or ulcers noted Psychiatric: normal judgement and insight, normal mood, and normal affect NEUROLOGIC EXAMINATION: Mental Status:alert, oriented to time, place, person, normal recent memory, normal remote memory, normal attention span, normal concentration, normal language and normal fund of knowledge Cranial Nerves: CN 2 - no visual defect on confrontation and pupils round, equal, reactive to light CN 3, 4, 6 - extra-ocular movements intact and no nystagmus CN 5 - facial sensation intact CN 7 - no facial asymmetry CN 8 -sensorineural hearing loss CN 9, 10 - palate symmetric, normal gag CN 11 - good shoulder shrug CN 12 - tongue midline MOTOR: Strength was at least antigravity throughout, Pronator drift was absent and There were no abnormal movements SENSATION: intact and symmetric to pinprick, light touch, vibration and joint position GAIT: stable, no ataxia and can perform tandem walking COORDINATION: no ataxia with finger to nose testing and heel to noble testing REFLEXES: cannot assess over telemedicine NIH Stroke Scale: 1a. Level of Consciousness: alert = 0 1b. LOC Questions: (month, age): both correct = 0 1c. LOC Commands (open and close eyes, make fist and let go using non-paretic hand): obeys both correctly = 0 2. Best Gaze (eyes open and patient follows examiner's finger or face): normal = 0 3. Visual (visual threat or finger counting in each quadrant): no loss = 0 4. Facial Palsy (show teeth, raise eye brows and squeeze eyes shut, or grimace symmetry in a comatose patient): normal = 0 5a. Motor Arm (extend arm (palms down) to 90 degrees and score drift/movement (10 seconds) - Left: no drift = 0 5b. Motor Arm: (extend arm (palms down) to 90 degrees and score drift/movement (10 seconds) - Right: no drift = 0 6a. Motor Leg (elevate leg 30 degrees and score drift/ movement (5 seconds) - Left: no drift = 0 6b. Motor Leg (elevate leg 30 degrees and score drift/ movement (5 seconds) - Right: no drift = 0 7. Limb Ataxia (finger to nose, heel down noble): absent = 0 8. Sensory (pin prick to face, arm, trunk and leg, compare side to side): normal = 0 9. Best Language: no aphasia = 0 10. Dysarthria (evaluate speech clarity by patient repeating listed words): normal articulation = 0 11. Extinction and Inattention: no neglect = 0 Total: 0 Results & Data Vital Signs (Past 12 Hours) Vital Signs Temp Pulse Pulse Resp BP Pulse Ox Pulse Ox 03/14/25 12:14 100 03/14/25 11:22 36.4 C L 67 18 150/71 H 98 03/14/25 08:07 56 L 03/14/25 07:58 36.4 C L 51 L 18 170/77 H 98 O2 Del Method O2 Flow Rate 03/14/25 12:14 0 03/14/25 11:22 Room Air 03/14/25 08:07 03/14/25 07:58 Room Air Laboratory Results Laboratory Results - last 24 hr 03/13/25 03/13/25 03/13/25 17:23 17:49 20:34 WBC RBC Hgb Hct MCV MCH MCHC RDW Std Deviation RDW Coeff of Melanie Plt Count MPV Sodium Potassium Chloride Carbon Dioxide Anion Gap BUN Creatinine Est Cr Clr Drug Dosing eGFR BUN/Creatinine Ratio Glucose POC Glucose 152 H 154 H Estimat Average Glucose Hemoglobin A1c Calcium Triglycerides Cholesterol LDL Cholesterol, Calc VLDL Cholesterol, Calc HDL Cholesterol Cholesterol/HDL Ratio Urine Color Yellow Urine Appearance Clear Urine pH 6.0 Ur Specific [place] 1.031 H Urine Protein 3+ H Urine Glucose (UA) Negative Urine Ketones Negative Urine Blood 1+ H Urine Nitrite Negative Urine Bilirubin Negative Urine Urobilinogen Negative Ur Leukocyte Esterase Trace H Urine WBC (Auto) 6-10 H Urine RBC (Auto) 3-5 H U Hyaline Cast (Auto) 0-2 U Epithel Cells (Auto) 0-2 Urine Bacteria (Auto) None Seen Urine Comment 03/14/25 03/14/25 07:06 08:21 WBC 14.53 H RBC 4.07 L Hgb 12.0 L Hct 36.5 L MCV 89.7 MCH 29.5 MCHC 32.9 RDW Std Deviation 40.4 RDW Coeff of Melanie 12.5 Plt Count 131 MPV 8.9 L Sodium 139 Potassium 4.3 Chloride 105 Carbon Dioxide 28 Anion Gap 6 BUN 43 H Creatinine 2.31 H Est Cr Clr Drug Dosing 18.9 eGFR 26.51 BUN/Creatinine Ratio 18.6 Glucose 175 H POC Glucose 163 H Estimat Average Glucose 146 Hemoglobin A1c 6.7 H Calcium 9.1 Triglycerides 98 Cholesterol 188 LDL Cholesterol, Calc 124 VLDL Cholesterol, Calc 20 HDL Cholesterol 44 Cholesterol/HDL Ratio 4.3 Urine Color Urine Appearance Urine pH Ur Specific [place] Urine Protein Urine Glucose (UA) Urine Ketones Urine Blood Urine Nitrite Urine Bilirubin Urine Urobilinogen Ur Leukocyte Esterase Urine WBC (Auto) Urine RBC (Auto) U Hyaline Cast (Auto) U Epithel Cells (Auto) Urine Bacteria (Auto) Urine Comment Diagnostic Findings MRI of the brain was reviewed and shows no evidence of acute ischemia specifically in the posterior circulation. Minimal chronic white matter changes. CTA of the head and neck shows multiple areas of atherosclerotic disease with notable stenosis of the right SUPERVISOR PROPERTIES. Echocardiogram showed EF 60-65%, with no obvious cardiac source. EKG showed normal sinus rhythm with some sinus arrhythmias. Medications Administered Home Medications Medication Instructions Recorded Confirmed Last Taken gabapentin 600 mg tablet,extended 600 mg PO QAM 01/11/19 03/13/25 Unknown release 24 hr aspirin 81 mg tablet,delayed 81 mg PO DAILY 03/04/21 03/13/25 Unknown release multivitamin 1 tab PO DAILY 03/04/21 03/13/25 Unknown omega-3 fatty acids 1,000 mg 1,000 mg PO DAILY 03/04/21 03/13/25 Unknown capsule valacyclovir 500 mg tablet 500 mg PO Q OTHER DAY 03/04/21 03/13/25 Unknown latanoprost 0.005 % eye drops 1 drp ophthalmic (eye) HS 03/13/25 03/13/25 Unknown amlodipine 10 mg tablet 10 mg PO QAM #0 tabs 03/14/25 03/13/25 Unknown atorvastatin 40 mg tablet 40 mg PO QAM 30 days #30 tabs 03/14/25 Unknown clopidogrel 75 mg tablet 75 mg PO QAM 30 days #30 tabs 03/14/25 Unknown Active Medications Generic Name Dose Route Start Last Admin Trade Name Neeraj PRN Reason Stop Dose Admin Amlodipine Besylate 10 mg 03/14/25 09:00 03/14/25 09:31 Amlodipine Besylate 5 Mg Tab PO 04/13/25 08:59 10 mg QAM DORYS Administration Aspirin 81 mg 03/14/25 09:00 03/14/25 09:31 Aspirin 81 Mg Ectab PO 04/13/25 08:59 81 mg DAILY DORYS Administration Atorvastatin Calcium 40 mg 03/13/25 15:02 03/14/25 09:32 Atorvastatin 40 Mg Tab PO 04/12/25 15:01 40 mg QAM DORYS Administration Clopidogrel Bisulfate 75 mg 03/14/25 09:00 03/14/25 09:32 Clopidogrel Bisulfate 75 Mg Tab PO 04/13/25 08:59 75 mg QAM DORYS Administration Gabapentin 300 mg 03/13/25 21:00 03/14/25 09:33 Gabapentin 300 Mg Cap PO 04/12/25 20:59 Not Given BID DORYS Latanoprost 1 drops 03/13/25 21:00 03/13/25 21:30 Latanoprost 0.005% Op Soln 2.5 Ml Btl OP 04/12/25 20:59 1 drops HS DORYS Administration Valacyclovir HCl 500 mg 03/14/25 09:00 03/14/25 09:32 Valacyclovir Hcl 500 Mg Tablet PO 03/16/25 08:59 500 mg Q2D DORYS Administration
--- NOTE | 2025-03-14 17:43 | Discharge Summary ---
Discharge Summary Date of Service March 14, 2025 delayed entry date of service 03/16/25 Principal Dx & Hospital Course #1 = Principal Diagnosis (1) Stroke-like symptoms: (2) CLL (chronic lymphocytic leukemia): (3) Type 2 diabetes mellitus: (4) BPH NOS w ur obs/LUTS: Plan Mr. Garay is an 89 year old male that presents to the [facility] ED with CVA-like symptoms. 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 Possible distal occlusion of the right posterior inferior cerebellar artery. Head CT without midline shift, ICH. 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 Baseline creatinine 2's Pt will be admitted for further evaluation and management of his stroke like symptoms. Obtain brain MRI, ECHO with bubble, Lipid panel, start high dose Lipitor, keep NPO until dysphagia screening passed, Neuro consult. SSI while inpatient. 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 Post ICA Takes baby ASA. Plavix given in ED; continue both 03/14 Brain MRI ordered Troponin negative ECHO ordered; last ECHO was in 2016; EF 60-64%, G1DDx, no sig valve changes. Neuro consult placed Lipid panel, Repeat A1C NIH 0 on examination If passes dysphagia screen, ok for diet Started on Lipitor 40 mg PT/OT; teds + SCDs for now 03/14 dizziness resolved Brain MRI: no acute CVA Echo: preserved EF, no valvular abnormalities, no ASD, Gr 1 Diastolic Dysfunction Plavix added to ASA Orthostatic VS: negative evaluated by Neurology service recommendation: Agree to continue aspirin and Plavix for 21 days in addition to high-dose statin, this should be followed by aspirin 81 mg daily. Zio patch upon discharge. 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 Admission HPI Per Admitting Provider Mr. Garay is an 89 year old male that presents to the [facility] ED with ataxia that he describes as starting last evening when he went to bed. Prior to last evening he states he was his normal self. He did feel like he had a fever last night. No recent upper respiratory symptoms including cough, SOB. 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 Possible distal occlusion of the right posterior inferior cerebellar artery. Head CT without midline shift, ICH. In the ED stroke telehealth was consulted; outside TNK window; no indication for thrombectomy, etc. Recommend continued stroke work up. His last A1c was 11/21/24 6.7. His last ECHO was in 2017; EF 60-64%, G1DDx, no significant valve changes. Additional past medical history includes ryt-yvidqyq-dlxusjnij diabetes, CLL (diagnosed 35+ years ago), and BPH. He smokes 5 cigars a day and chews tobacco daily. No alcohol or rec drug use. 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 Baseline creatinine 2's. 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 He denies urine or bowel changes. Does not use any cane/walker for ambulation assistance. On examination, patient is a well nourished male in no apparent distress. He is able to speak in complete sentences, no aphagia or residual strength issues identified. NIH 0. Lungs CTA, left glass eye with drainage that he states is normal. Pt will be admitted for further evaluation and management of his stroke like sy mptoms. Obtain brain MRI, ECHO with bubble, Lipid panel, start high dose Lipitor, keep NPO until dysphagia screening passed, Neuro consult. SSI while inpatient. PT/OT for also eval for possible BPPV. Please see A/P for further details. Admission Exam Per Admitting Provider Neuro: AAOx4, PERRLA, no aphagia, memory changes, CNII-XII grossly intact HEENT: head normocephalic, moist mucus membranes. Left eye (glass eye) with drainage (common) CV: S1/S2, (-) M/G/R, (-) edema, cap refill < 3 seconds Resp: Lungs CTA in all cody. On RA GI: Abdomen S/NT/ND, Ax4 bowel sounds, (-) CVA tenderness Musculoskeletal: 5/5 B/L UE strength, 5/5 B/L LE strength. No gait disturbance, does not use any ambulation assistive devices at baseline Skin: (-) rashes , (-) erythema. Psych: euthymic and jovial mood Discharge Exam General- oriented x 3, not in distress, speaks in sentences with no effort or accessory muscle use Eyes- anicteric Neck- no JVD Lungs- clear breath sounds bilaterally, no rales/wheezes Heart- normal rate, regular rhythm; no murmurs Abdomen- normal bowel sounds, nondistended, soft, nontender Extremities- no pretibial edema, no calf tenderness Neuro- alert, oriented x 3; no gross focal neurologic deficits Skin- warm & dry Updated Medication List Medication Instructions Recorded Confirmed Type gabapentin 600 mg tablet,extended 600 mg PO QAM 01/11/19 03/13/25 History release 24 hr aspirin 81 mg tablet,delayed 81 mg PO DAILY 03/04/21 03/13/25 History release multivitamin 1 tab PO DAILY 03/04/21 03/13/25 History omega-3 fatty acids 1,000 mg 1,000 mg PO DAILY 03/04/21 03/13/25 History capsule valacyclovir 500 mg tablet 500 mg PO Q OTHER DAY 03/04/21 03/13/25 History latanoprost 0.005 % eye drops 1 drp ophthalmic (eye) HS 03/13/25 03/13/25 History amlodipine 10 mg tablet 10 mg PO QAM #0 tabs 03/14/25 03/13/25 Rx atorvastatin 40 mg tablet 40 mg PO QAM 30 days #30 tabs 03/14/25 Rx clopidogrel 75 mg tablet 75 mg PO QAM 30 days #30 tabs 03/14/25 Rx Hospital Stay Data Consultations 03/13/25 12:35 ED Decision to Admit Stat 03/13/25 15:02 Consult Neurology Routine Diagnostic Imagining Performed Laboratory Results WBC 14.53 K/ul (4.8-10.8) H 03/14/25 07:06 RBC 4.07 M/uL (4.70-6.10) L 03/14/25 07:06 Hgb 12.0 g/dl (14.0-18.0) L 03/14/25 07:06 Hct 36.5 % (42.0-52.0) L 03/14/25 07:06 MCV 89.7 fL (80.0-100.0) 03/14/25 07:06 MCH 29.5 pg (25.0-34.0) 03/14/25 07:06 MCHC 32.9 g/dL (32.0-36.0) 03/14/25 07:06 RDW Std Deviation 40.4 fL (36.4-46.3) 03/14/25 07:06 RDW Coeff of Melanie 12.5 % (11.5-14.5) 03/14/25 07:06 Plt Count 131 K/uL (130-400) 03/14/25 07:06 MPV 8.9 fL (9.4-12.4) L 03/14/25 07:06 Immature Gran % (Auto) 0.2 % 03/13/25 09:45 Neut % (Auto) 24.8 % 03/13/25 09:45 Lymph % (Auto) 72.2 % 03/13/25 09:45 [place] % (Auto) 2.4 % 03/13/25 09:45 Eos % (Auto) 0.2 % 03/13/25 09:45 Baso % (Auto) 0.2 % 03/13/25 09:45 Neut # (Auto) 5.13 K/uL (1.40-6.50) 03/13/25 09:45 Lymph # (Auto) 14.94 K/uL (1.20-3.40) H 03/13/25 09:45 [place] # (Auto) 0.49 K/uL (0.11-0.59) 03/13/25 09:45 Eos # (Auto) 0.04 K/uL (0.00-0.50) 03/13/25 09:45 Baso # (Auto) 0.05 K/uL (0.00-0.20) 03/13/25 09:45 Immature Gran # (Auto) 0.04 K/uL (0.01-0.20) 03/13/25 09:45 Smudge Cells Present 03/13/25 09:45 PT 10.2 Seconds (9.0-12.0) 03/13/25 09:45 INR 1.0 (0.9-1.1) 03/13/25 09:45 APTT 29 Seconds (21-31) 03/13/25 09:45 PTT Ratio 1.1 03/13/25 09:45 Sodium 139 mmol/L (136-145) 03/14/25 07:06 Potassium 4.3 mmol/L (3.5-5.1) 03/14/25 07:06 Chloride 105 mmol/L (98-107) 03/14/25 07:06 Carbon Dioxide 28 mmol/L (21-32) 03/14/25 07:06 Anion Gap 6 (3-11) 03/14/25 07:06 BUN 43 mg/dl (6-23) H 03/14/25 07:06 Creatinine 2.31 mg/dl (0.6-1.4) H 03/14/25 07:06 Est Cr Clr Drug Dosing 18.9 ml/min 03/14/25 07:06 eGFR 26.51 03/14/25 07:06 BUN/Creatinine Ratio 18.6 (10-20) 03/14/25 07:06 Glucose 175 mg/dl (70-99(Fasting)) H 03/14/25 07:06 POC Glucose 163 mg/dl (70-99) H 03/14/25 08:21 Estimat Average Glucose 146 mg/dl 03/14/25 07:06 Hemoglobin A1c 6.7 % (4.5-5.6) H 03/14/25 07:06 Calcium 9.1 mg/dl (8.6-10.3) 03/14/25 07:06 Magnesium 2.2 mg/dl (1.7-2.4) 03/13/25 09:45 Total Bilirubin 0.6 mg/dl (0.2-1.0) 03/13/25 09:45 AST 15 U/L (13-39) 03/13/25 09:45 ALT 10 U/L (7-52) 03/13/25 09:45 Alkaline Phosphatase 76 U/L (34-104) 03/13/25 09:45 Troponin I High Sens 19.4 pg/ml (0-20) 03/13/25 09:45 Total Protein 6.6 gm/dl (6.0-8.3) 03/13/25 09:45 Albumin 4.2 gm/dl (3.4-5.0) 03/13/25 09:45 Globulin 2.4 gm/dl (2.5-4.0) L 03/13/25 09:45 Albumin/Globulin Ratio 1.8 (0.9-2) 03/13/25 09:45 Triglycerides 98 mg/dl (0-150) 03/14/25 07:06 Cholesterol 188 mg/dl (0-200) 03/14/25 07:06 LDL Cholesterol, Calc 124 mg/dl 03/14/25 07:06 VLDL Cholesterol, Calc 20 mg/dl (0-30) 03/14/25 07:06 HDL Cholesterol 44 mg/dl 03/14/25 07:06 Cholesterol/HDL Ratio 4.3 (0-5) 03/14/25 07:06 Urine Color Yellow 03/13/25 17:49 Urine Appearance Clear (Clear) 03/13/25 17:49 Urine pH 6.0 (4.5-7.5) 03/13/25 17:49 Ur Specific [place] 1.031 (1.000-1.030) H 03/13/25 17:49 Urine Protein 3+ (Negative) H 03/13/25 17:49 Urine Glucose (UA) Negative (Negative) 03/13/25 17:49 Urine Ketones Negative (Negative) 03/13/25 17:49 Urine Blood 1+ (Negative) H 03/13/25 17:49 Urine Nitrite Negative (Negative) 03/13/25 17:49 Urine Bilirubin Negative (Negative) 03/13/25 17:49 Urine Urobilinogen Negative (Negative) 03/13/25 17:49 Ur Leukocyte Esterase Trace (Negative) H 03/13/25 17:49 Urine WBC (Auto) 6-10 /hpf (0-5) H 03/13/25 17:49 Urine RBC (Auto) 3-5 /hpf (0-2) H 03/13/25 17:49 U Hyaline Cast (Auto) 0-2 /lpf (0-2) 03/13/25 17:49 U Epithel Cells (Auto) 0-2 /hpf (0-2) 03/13/25 17:49 Urine Bacteria (Auto) None Seen (None Seen) 03/13/25 17:49 Urine Comment 03/13/25 17:49 Impressions Chest X-Ray 03/13/25 09:33 XR chest 1V portable CLINICAL HISTORY: stroke alert COMPARISON STUDY: 08/16/2014 FINDINGS: Heart size and pulmonary vasculature are normal. No consolidation or pleural effusion. No pneumothorax. Stable old left rib fractures. IMPRESSION: No acute findings. ACT 112: Negative or not required by law. Electronically signed by: Yimi Corona M.D. 03/13/2025 10:[address] 03/13/25 10:06 CT head/brain wo con CLINICAL HISTORY: neuro deficit, acute stroke suspected. TECHNIQUE: Multiple axial CT images of the head were obtained without contrast. A dose lowering technique was utilized adhering to the principles of ALARA. COMPARISON: None FINDINGS: Exam was repeated due to motion. No intracranial hemorrhage seen. No mass effect, midline shift, or hydrocephalus. No skull fracture seen. Visualized paranasal sinuses and mastoid air cells are clear. IMPRESSION: No acute findings. ACT 112: Negative or not required by law. The above report was generated using voice recognition software. It may contain grammatical, syntax or spelling errors. Electronically signed by: Yimi Corona M.D. 03/13/2025 10:45 AM Head CTA 03/13/25 10:06 CTA ANGIOGRAPHY OF THE HEAD CLINICAL HISTORY: neuro deficit, acute stroke suspected COMPARISON STUDY: No previous studies for comparison. TECHNIQUE: Helical axial images of the head were obtained following uneventful intravenous administration of 112 cc of Optiray. Sagittal and coronal reconstructions were viewed as well as maximal intensity projections on an independent 3-D workstation. Automated exposure control was utilized for the study. A dose lowering technique was utilized adhering to the principles of ALARA. CT DOSE: 1645.2 mGy.cm FINDINGS: Please note that the head CT will be reported separately. No acute intracranial hemorrhage, midline shift or mass effect is present. Ventricular system is normal. Basal cisterns are patent. Moderate to severe multifocal stenoses within numerous intracranial vessels are present. These include moderate stenosis of the bilateral cavernous carotid and supraclinoid internal carotid arteries. No definite vessel occlusion within the anterior circulation is present. The plaque within the cavernous and supraclinoid ICAs. There are severe multifocal stenoses within the right posterior inferior cerebellar artery. There is possible distal occlusion of this vessel on image 48 of 254. There is moderate multifocal narrowing within the basilar artery. There is severe narrowing of the right P2/P3 segment. There also moderate to severe stenosis within the left posterior cerebral artery. 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 Possible distal occlusion of the right posterior inferior cerebellar artery. This could be correlated with clinical evidence for an acute cerebellar infarct and MRI if indicated. ACT 112: Negative or not required by law. Electronically signed by: Julien Bardales M.D. 03/13/2025 10:58 AM Neck CTA 03/13/25 10:06 CT ANGIOGRAM OF THE NECK CLINICAL HISTORY: Neurological deficit. Stroke like symptoms. COMPARISON STUDY: No priors TECHNIQUE: Following the IV administration of 112 of Optiray 320, CT angiogram of the neck was performed from the aortic arch to the skull base. Images are reviewed in the axial, sagittal, and coronal planes. 3-D MIPS images are created and assessed. IV contrast was administered without complication. All measurements were calculated based on NASCET criteria. A dose lowering technique was utilized adhering to the principles of ALARA. FINDINGS: Thoracic aorta: There is atherosclerotic calcification of the thoracic aorta. Visualized portions of the thoracic aorta are normal in caliber. The aortic arch demonstrates standard 3-vessel anatomy. Right carotid arterial system: The right common carotid artery is widely patent, as are the right internal and external carotid arteries. Calcified plaque is seen in the carotid bulb. Left carotid arterial system: The left common carotid artery is widely patent, as are the left internal and external carotid arteries. Mild plaque is seen in the carotid bulb. Vertebral arteries: Widely patent bilaterally and codominant in the neck. Subclavian arteries: Widely patent bilaterally. Intracranial vasculature: The visualized intracranial vessels at the skull base are patent. See report today's CT angiogram of the brain for detailed intracranial findings. Jugular veins: The left internal jugular vein is patent. The right internal jugular vein is diminutive and not well-visualized. Brain parenchyma: The visualized brain parenchyma the skull base is within normal limits. Lung apices: Partially visualized upper lobe lung parenchyma appears clear. Soft tissues: The visualized pharyngeal soft tissues are normal in appearance noting angiographic phase technique. The oropharyngeal airway appears widely patent. The thyroid gland is normal in size and heterogeneous in attenuation. The salivary glands are normal in appearance. No cervical lymphadenopathy is seen. Skeletal structures: The skeletal structures are osteopenic. The visualized calvarium at the skull base appears intact. The imaged cervical spine is maintained noting multilevel spondylosis. Sinuses and mastoids: The visualized paranasal sinuses are clear. The mastoid air cells are well pneumatized. IMPRESSION: Unremarkable CT angiogram of the neck. ACT 112: Negative or not required by law. Electronically signed by: Eric Jordan M.D. 03/13/2025 10:56 AM Brain MRI 03/13/25 12:56 MRI OF THE BRAIN WITHOUT IV CONTRAST CLINICAL HISTORY: Stroke like symptoms. Dizziness. COMPARISON STUDY: Head CT and CTA of the head performed earlier today. TECHNIQUE: MRI of the brain was performed utilizing various T1 and T2-weighted sequences in the axial, sagittal, and coronal planes. IV contrast was not administered for this examination. FINDINGS: Brain parenchyma: There are no foci of restricted diffusion to suggest acute infarct. No acute intracranial hemorrhage, midline shift or mass effect is present. No intracranial masses are identified on unenhanced exam. Scattered small white matter T2 hyperintense foci suggest mild small vessel disease. Ventricles, sulci, and cisterns: There is no hydrocephalus. The basal cisterns are patent. There are no extra-axial collections. Pituitary and sella: Unremarkable. Intracranial vasculature: Flow-voids for the major intracranial vessels are present. Orbits: Orbital contents are unremarkable. Sinuses and mastoids: Clear. Calvarium: No calvarial lesions are identified. Cervical cord: Partially visualized cervical spinal cord is normal in morphology and signal intensity. IMPRESSION: No acute intracranial findings. ACT 112: Negative or not required by law. Electronically signed by: Julien Bardales M.D. 03/13/2025 2:04 PM Pending Results Patient Have Any Pending Studies at Discharge: No Discharge Instructions Given to Patient (Per Discharging Provider) PLEASE REFER TO YOUR NEW MEDICATION LIST AND FOLLOW INSTRUCTIONS CAREFULLY. YOUR NEW MEDICATIONS INCLUDE: Plavix- antiplatelet for TIA/stroke prevention Increase Atorvastatin to 40mg daily. You need to have a color television console monitor placed as an outpatient. Your Primary Care Physician can facilitate with this. PLEASE CALL YOUR PRIMARY CARE PHYSICIAN OR RETURN TO THE ER IF WITH WORSENING OF SYMPTOMS, INCLUDING persistent dizziness/lightheadedness, weakness, etc. FOLLOW UP WITH PRIMARY CARE PHYSICIAN IN 1 WEEK. THE OFFICE WILL CALL YOU FOR THE APPOINTMENT DATE. Total Time Total Time Spent Total Time Spent (In Minutes): 50 minutes
--- NOTE | 2025-03-18 06:00 | Electrocardiogram Report ---
Test Reason : Blood Pressure : */* mmHG Vent. Rate : 58 BPM Atrial Rate : 58 BPM P-R Int : 200 ms QRS Dur : 98 ms QT Int : 440 ms P-R-T Axes : 85 17 36 degrees QTcB Int : 431 ms Sinus bradycardia with Premature atrial complexes Otherwise normal ECG When compared with ECG of 03-May-2014 10:39, Premature atrial complexes are now Present Confirmed by Michael Mustafa ([id number]) on 03/18/2025 5:59:42 AM Referred By: Confirmed By: Michael Mustafa
== END 2025-03-14 17:40 | disposition home or self-care (01) | DRG 68 ==
LOC: ED 09:24 → SUATTDRO 12:53 → 2W 12:53